=== PATIENT | female | born 1935 | race Two or more races ===

== ENCOUNTER 2022-11-19 16:30 | Inpatient (IN) | payer MEDICARE, OTHER ==
[~2022-11-19] VITALS: Ht 157.5 cm; Wt 65.8 kg
--- NOTE | 2022-11-19 16:45 | NUR ---
BIB CARETAKERS STATING THAT SHE HAS BEEN REFUSING MEDICATION FOR A WEEK AND IS PARANOID, HERE FOR PSYCH EVAL. PLACED IN BED, AAOX3- CALM, COOPERATIVE.
--- NOTE | 2022-11-19 17:24 | NUR ---
SCREEN PRINTING SUPERVISOR AT BEDSIDE
--- NOTE | 2022-11-19 17:28 | NUR ---
SWAB FOR COVID19 SENT TO LAB
[2022-11-19] MEDS ORDERED: FAMO20TA8 PO (17:40)
[2022-11-19] MEDS ORDERED: DICL100G34 TD (17:40)
[2022-11-19] MEDS ORDERED: DORZ1DRO7 EACHEYE (17:40)
[2022-11-19] MEDS ORDERED: METF-440 PO (17:40)
[2022-11-19] MEDS ORDERED: LIDO1ADH82 TP (17:40)
[2022-11-19] MEDS ORDERED: SITA100T PO (17:40)
[2022-11-19] MEDS ORDERED: ROSU5TAB13 PO (17:40)
[2022-11-19] MEDS ORDERED: LOSA50TA39 PO (17:40)
[2022-11-19] MEDS ORDERED: MEMA5TAB42 PO (17:40)
[2022-11-19] MEDS ORDERED: NETA2.5D3 EACHEYE (17:40)
[2022-11-19] MEDS ORDERED: SODI45SP6 (17:40)
[2022-11-19] MEDS ORDERED: ALBU18HF2 IH (17:40)
[2022-11-19] MEDS ORDERED: BACL10TA PO (17:40)
[2022-11-19] MEDS ORDERED: QUET25TA PO (17:40)
[2022-11-19] MEDS ORDERED: BRIM5DRO11 EACHEYE (17:40)
[2022-11-19] MEDS ORDERED: PILO15DR7 EACHEYE (17:40)
[2022-11-19] MEDS ORDERED: HYDR12.55 PO (17:40)
[2022-11-19 17:50] LABS: BASOPHILS % (AUTO) 0.3 % (0.0-2.0); EOSINOPHILS % (AUTO) 0.9 % (0.0-6.0); HEMATOCRIT 38 % (33-45); HEMOGLOBIN 12.5 g/dL (11.5-14.8); LYMPHOCYTES # (AUTO) 1.3 K/uL (0.8-4.8); LYMPHOCYTES % (AUTO) 14.9 % (20.0-44.0); MEAN CORPUSCULAR HGB CONC 33 g/dl (31.0-36.0); MEAN CORPUSCULAR VOLUME 92 fL (82-100); MONOCYTES # (AUTO) 0.6 K/uL (0.1-1.30); MONOCYTES % (AUTO) 6.8 % (2.0-12.0); NEUTROPHILS # (AUTO) 6.6 K/uL (1.8-8.9); NEUTROPHILS % (AUTO) 77.1 % (43.0-81.0); PLATELET COUNT (AUTO) 348 K/uL (150-450); WHITE BLOOD COUNT (AUTO) 8.6 K/uL (4.3-11.0)
[2022-11-19 18:17] LABS: ALANINE AMINOTRANSFERASE 15 U/L (12-78); ALBUMIN 2.9 g/dL (3.4-5.0); ALKALINE PHOSPHATASE 91 U/L (46-116); ASPARTATE AMINOTRANSFERASE 16 U/L (15-37); BILIRUBIN,DIRECT 0.1 mg/dL (0.0-0.2); BILIRUBIN,TOTAL 0.3 mg/dL (0.2-1.0); CALCIUM, SERUM 9.1 mg/dL (8.5-10.1); CHLORIDE 103 mmol/L (98-107); GLUCOSE 276 mg/dL (74-106); SODIUM SERUM 140 mmol/L (136-145); TOTAL PROTEIN, SERUM 7.2 g/dL (6.4-8.2); UREA NITROGEN, BLOOD 20 mg/dL (7-18)
[2022-11-19 18:23] LABS: CARBON DIOXIDE 28 mmol/L (21-32)
[2022-11-19 18:31] LABS: ALCOHOL, BLOOD < 3 mg/dL (0-0)
--- NOTE | 2022-11-19 19:00 | NUR ---
room 211-b
[2022-11-19 19:45] LABS: BILIRUBIN,URINE NEGATIVE (NEGATIVE); COLOR,URINE YELLOW (YELLOW); LEUKOCYTE ESTERASE ,URINE 1+ (NEGATIVE); NITRITE, URINE POSITIVE (NEGATIVE); PROTEIN,URINE TRACE mg/dl (NEGATIVE); UGLUCOSE NEGATIVE (NEGATIVE); UROBILINOGEN,URINE 0.2 EU/dL (0.2)
[2022-11-19 20:43] LABS: BACTERIA,URINE Many /HPF (None Seen); SQUAMOUS EPITHELIAL CELL,UR Moderate /HPF (None Seen)
--- NOTE | 2022-11-19 20:47 | NUR ---
PER LAB , NOT ENOUGH URINE
--- NOTE | 2022-11-19 20:48 | NUR ---
REPORT GIVEN TO BEATRIZ BERNABE ROOM 211-B FOR JUDY
[2022-11-19] MEDS: POTASSIUM CHLORIDE 20 MEQ TAB.PRT.SR PO ONE ×2 (21:30→23:02)
--- NOTE | 2022-11-19 21:50 | NUR ---
RN NOTES; ADMITTED A 87 Y/O FEMALE FROM [facility] AND EVALUATED FROM [facility].ON 5150 HOLD GD,BASED ON HOLD ,PT IS BROUGHT FOR EVALUATION D/T PSYCHOTIC AND PARANOID,NOT TAKING MEDS FOR A WEEK,PT ADMITTING DX,PSYCHOSIS AND MEDICAL DX OF HTN,DM,HLD,UPON FACE TO FACE EVALUATION,PT APPEARED AOX3 WITH CONFUSION,NO SIGN SOB/DISTRESS NOTED,NO COMPLAINED OF PAIN/DISCOMFORT AT THIS TIME,PT IS UNDER THE CARE OF DAGO DE LA FUENTE K.PT REFUSED TO SIGN ADMISSION CONSENT PAPERS,BELONGINGS COLLECTED FOR CONTRABAND CHECK,FAMILY WAS NOTIFIED SPOKE TO DAUGHTER BECCA HODGES.KEPT CLEAN,DRY AND COMFORTABLE,WILL CONTINUE TO MONITOR [id number] FOR SAFETY.
--- NOTE | 2022-11-19 21:52 | NUR ---
PT TRANSPORTED TO UNIT ON WHEELCHAIR. PT IS IN STABLE CONDITION. PT IS AMBULATORY.
[2022-11-19] MEDS ORDERED: MAGNESIUM HYDROXIDE 30 ML UDC PO PRN (22:00)
[2022-11-19] MEDS ORDERED: Medication Not On Formulary EA (Netarsudil Mesylat/Latanoprost (Rocklatan 0.02%-0.005% E EACHEYE SCH (22:00)
[2022-11-19] MEDS: ATORVASTATIN 10 MG TABLET PO SCH ×2 (22:00→23:02)
[2022-11-19] MEDS: LOSARTAN POTASSIUM 50 MG TABLET PO SCH ×2 (22:00→23:02)
--- NOTE | 2022-11-19 23:17 | NUR ---
RN NOTE; PATIENT REFUSED ALL DUE MEDS,K-DUR,COZAAR,LIPITOR.EXPLAINED BENEFITS X3.STILL REFUSED.
--- NOTE | 2022-11-19 23:18 | NUR ---
RN NOTE; PATIENT REFUSED ALL DUE MEDS,K-DUR,COZAAR,LIPITOR.EXPLAINED BENEFITS X3.STILL REFUSED.
[2022-11-19] MEDS: TEMAZEPAM 7.5 MG CAPSULE PO PRN (23:54)
--- NOTE | 2022-11-20 00:28 | NUR ---
RN NOTES; PT REFUSED DUE MEDS KEFLEX.
[2022-11-20] MEDS ORDERED: GUAIFENESIN/D-METHORPHAN HB 5 ML UDC PO PRN (05:00)
[2022-11-20] MEDS: CEPHALEXIN MONOHYDRATE 500 MG CAPSULE PO SCH ×4 (05:57→17:59)
[2022-11-20 07:17] LABS: CREATININE 0.8 mg/dL (0.6-1.3)
[2022-11-20 07:47] LABS: CHOLESTEROL 123 mg/dL (<200); HDL CHOLESTEROL 32 mg/dL (40-60); LDL 74 mg/dL (0-99); TRIGLYCERIDES 141 mg/dL (30-150)
[2022-11-20 08:00] VITALS: BP 124/71
[2022-11-20] MEDS ORDERED: ALBUTEROL FS 2.5 MG/0.5 ML VIAL.NEB NEB PRN (08:00)
[2022-11-20] MEDS ORDERED: [UNRECOGNIZED DRUG - OTHER] EACHEYE SCH (09:00)
[2022-11-20] MEDS ORDERED: Medication Not On Formulary EA (Sitagliptin Phosphate (Januvia) 100 MG) PO SCH (09:00)
[2022-11-20] MEDS: FAMOTIDINE (20 MG) 20 MG TABLET PO SCH ×3 (09:00→17:00)
[2022-11-20] MEDS: BRIMONIDINE TARTRATE OPHT SOLN 5 ML BOTTLE EACHEYE SCH ×3 (09:00→17:00)
[2022-11-20] MEDS: MEMANTINE HCL 5 MG TABLET PO SCH ×2 (09:00→09:58)
[2022-11-20] MEDS ORDERED: DICLOFENAC TOPICAL 100 GM TUBE TP SCH (09:00)
[2022-11-20] MEDS: PILOCARPINE 2% OPTH DROP 15 ML BOTTLE EACHEYE SCH ×2 (09:00→17:00)
[2022-11-20] MEDS ORDERED: DORZOLAMIDE EACHEYE SCH (09:00)
[2022-11-20] MEDS ORDERED: TIMOLOL EACHEYE SCH (09:00)
--- NOTE | 2022-11-20 09:00 | NUR ---
RN- NOTES ISOPTO CARPINE 2% EYE DROPS NOT ADMINISTERED DUE TO MEDICATION NOT IN FORMULARY. WILL CONTACT PATIENT FAMILY TO DROP OFF MEDICATION.
[2022-11-20] MEDS: LIDOCAINE 5% (PATCH) 1 EA PATCH TP SCH (09:41)
[2022-11-20] MEDS: SALINE NASAL SPRAY 0.65% 1 BOTTLE BOTTLE NS SCH ×2 (09:43→17:00)
[2022-11-20] MEDS: BACLOFEN (10 MG) 10 MG TABLET PO SCH ×2 (09:58→17:00)
[2022-11-20] MEDS: LINAGLIPTIN 5 MG TABLET PO SCH (09:58)
[2022-11-20] MEDS: METFORMIN 500 MG TABLET PO SCH ×2 (09:58→17:00)
--- NOTE | 2022-11-20 11:07 | NUR ---
pt refused baclofen at 0900 but on emar software writer was unable to document the change from administered to non administered due to baclofen not showing up in emar again. software writer wasted baclofen via omnicel.
--- NOTE | 2022-11-20 11:19 | NUR ---
principal technical writer attempted to waste baclofen via omnicel but omnicel did not accept waste for unknown reason. principal technical writer wasted baclofen 10mg with French Nelson RN.
[2022-11-20] MEDS: DIVALPROEX SODIUM 125 MG CAP.SPRINK PO SCH ×2 (11:30→17:00)
--- NOTE | 2022-11-20 14:47 | NUR ---
SHEA Clinical Note: Pt placed on a 5150 hold for GD. Pt brought to the hospital due to being aggressive at the facility. [place] [address]. SHEA will contact pt's probate conservator daughter, Stephy ([phone]) to discuss treatment/discharge plan. SHEA will contact pt's caregiver Joyce ([phone]) to gather collateral.
--- NOTE | 2022-11-20 14:47 | NUR ---
SHEA Initial Discharge Note: [place] [address]. SHEA will contact pt's probate conservator daughter, Stephy ([phone]) to discuss treatment/discharge plan. SHEA will contact pt's caregiver Joyce ([phone]) to gather collateral. SHEA will coordinate appropriate discharge with MD, treatment, and pt to help coordinate appropriate discharge.
--- NOTE | 2022-11-20 14:49 | NUR ---
Treatment Plan: Pt refused to sign treatment plan and was labile.
--- NOTE | 2022-11-20 15:02 | NUR ---
Facility Contact: SW attempted to contact pt's facility plastic molder Joyce ([phone]) and stated she would need to be stable. She would have to re-assess the pt before.
--- NOTE | 2022-11-20 15:06 | NUR ---
Family Contact: SW contacted pt's daughter Stephy ([phone]) and she stated to call her back later that she is busy. SW will attempt to contact again.
--- NOTE | 2022-11-20 15:34 | NUR ---
SHEA Family Contact: SW contacted pt's probate conservator Stephy ([phone]) and she said she would want pt back to the [facility]. She stated that she does not want to get constant calls from the staff only emergency contact.
[2022-11-20 16:00] VITALS: BP 100/62
--- NOTE | 2022-11-20 16:24 | NUR ---
RN- NOTES DAUGHTER CALLED TO ASK FOR DORZOLAMID/TIMOLOL AND NETARSUDIL MESYLAT/LATANOPROST EYE DROPS TO BE DELIVERED FOR HOSPITAL USE. DAUGHTER STATED, "I DON'T KNOW WHY SHE IS ON EYE DROPS, THEY DON'T HELP." MD NOTIFIED BY PHARMACY AND DISCONTINUED PER MD ORDERS.
[2022-11-20 20:00] VITALS: BP 103/75
[2022-11-20 20:40] VITALS: BP 103/75
[2022-11-20] MEDS: QUETIAPINE FUMARATE 25 MG TABLET PO SCH (22:00)
[2022-11-20] MEDS: LOSARTAN POTASSIUM 50 MG TABLET PO SCH (22:00)
[2022-11-20] MEDS ORDERED: QUETIAPINE FUMARATE 25 MG TABLET PO SCH (22:00)
[2022-11-20] MEDS: ATORVASTATIN 10 MG TABLET PO SCH (22:00)
--- NOTE | 2022-11-20 22:33 | NUR ---
PATIENT INSISTS SHE WILL NOT TAKE ANY MEDS SINCE SHE WAS NEVER SEEN BY A DOCTOR. GAVE PATIENT EDUCATION REGARDING MEDICATION REGIMEN, RISKS AND BENEFITS, BUT STILL REFUSED.
[2022-11-20] MEDS: LORAZEPAM 0.5 MG TABLET PO PRN (23:38)
--- NOTE | 2022-11-20 23:39 | NUR ---
PATIENT SAID SHE WILL TAKE HER PRN ATIVAN 0.5MG BUT WHEN SHE WAS OFFERED, SHE REFUSED. PATIENT IS VERY NEEDY, AGITATED, NON-DIRECTABLE AND UNABLE TO CONTROL BEHAVIOR. WASTE MED WITH JENNYFER BARTLETT.
--- NOTE | 2022-11-21 00:13 | NUR ---
I TOLD THE PATIENT THAT SHE IS POSITIVE FOR UTI, VERBALIZED SHE DOES NOT WANT TO TAKE IT NOW AND SHE WILL TAKE IT IN THE MORNING. EXPLAINED TO HER THAT SHE NEEDS TO TAKE THE ANTIBIOTIC EVERY 6 HOURS SO IT WILL BE EFFECTIVE. STILL REFUSED AND KEEP SAYING SHE HAS NOT BEEN SEEN BY THE DOCTOR.
[2022-11-21] MEDS: MAG HYDROX/AL HYDROX/SIMETH 30 ML UDC PO PRN (00:22)
--- NOTE | 2022-11-21 00:34 | NUR ---
C/O STOMACH CRAMPS AND COUGHING NOTED. GAVE PRN MAALOX AND ROBITUSSIN. PATIENT TOOK A SIP AND REFUSED THE MEDS DUE TO TASTE. ENCOURAGED TO DRINK WATER RIGHT AFTER.
[2022-11-21] MEDS: CEPHALEXIN MONOHYDRATE 500 MG CAPSULE PO SCH ×5 (06:00→23:16)
--- NOTE | 2022-11-21 06:37 | NUR ---
PATIENT SLEEPING, EASY TO AROUSE. ABLE TO VERBALIZE NEEDS. NEEDY, ATTENTION-SEEKING, GUARDED, SUSPICIOUS, LABILE, NON-DIRECTABLE, PERSEVERATING ON SEEING THE DOCTOR. NO SOB OR NOTED. NO C/O PAIN. NO SI/HI AT THIS TIME. REFUSED ALL SCHEDULED MEDS. FREQUENT RE-ORIENTATION NEEDED. SAFETY PRECAUTIONS IN PLACE. WILL ENDORSE TO NEXT SHIFT FOR CONTINUITY OF CARE.
[2022-11-21 08:00] VITALS: BP 129/71
[2022-11-21] MEDS: MEMANTINE HCL 5 MG TABLET PO SCH (09:00)
[2022-11-21] MEDS: SALINE NASAL SPRAY 0.65% 1 BOTTLE BOTTLE NS SCH ×2 (09:00→17:00)
[2022-11-21] MEDS: BACLOFEN (10 MG) 10 MG TABLET PO SCH ×2 (09:00→17:00)
[2022-11-21] MEDS: METFORMIN 500 MG TABLET PO SCH ×2 (09:00→17:00)
[2022-11-21] MEDS: DIVALPROEX SODIUM 125 MG CAP.SPRINK PO SCH ×2 (09:00→17:00)
[2022-11-21] MEDS: BRIMONIDINE TARTRATE OPHT SOLN 5 ML BOTTLE EACHEYE SCH ×2 (09:00→17:00)
[2022-11-21] MEDS: PILOCARPINE 2% OPTH DROP 15 ML BOTTLE EACHEYE SCH ×2 (09:00→17:00)
[2022-11-21] MEDS: LIDOCAINE 5% (PATCH) 1 EA PATCH TP SCH (09:00)
[2022-11-21] MEDS: LINAGLIPTIN 5 MG TABLET PO SCH (09:54)
[2022-11-21] MEDS: FAMOTIDINE (20 MG) 20 MG TABLET PO SCH ×2 (09:54→17:00)
--- NOTE | 2022-11-21 12:20 | NUR ---
Patient alert, ambulatory with walker, no complain of pain at this time, respiration even and unlabored, refused all 0900 medications, patient stated she is not taking any medication until she speaks to her doctor, charge nurse and MD aware, continue monitoring.
[2022-11-21 16:00] VITALS: BP 109/57
[2022-11-21 20:00] VITALS: BP 123/75
[2022-11-21] MEDS: LOSARTAN POTASSIUM 50 MG TABLET PO SCH (21:22)
[2022-11-21] MEDS: QUETIAPINE FUMARATE 25 MG TABLET PO SCH (21:23)
[2022-11-21] MEDS: ATORVASTATIN 10 MG TABLET PO SCH (21:23)
[2022-11-21] MEDS: TEMAZEPAM 7.5 MG CAPSULE PO PRN (23:03)
--- NOTE | 2022-11-22 03:31 | NUR ---
Took all PO medications without difficulty. ABT keflex in progress Temp 98.6. temazepam given for imsomia with some effect.
[2022-11-22] MEDS: CEPHALEXIN MONOHYDRATE 500 MG CAPSULE PO SCH ×5 (06:00→23:21)
--- NOTE | 2022-11-22 06:52 | NUR ---
Patient refused 6:00 o'clock antibiotic dose. States " I will take it later."
[2022-11-22 08:00] VITALS: BP 115/69
[2022-11-22] MEDS: LIDOCAINE 5% (PATCH) 1 EA PATCH TP SCH ×2 (08:58→09:00)
[2022-11-22] MEDS: MEMANTINE HCL 5 MG TABLET PO SCH (08:58)
[2022-11-22] MEDS: METFORMIN 500 MG TABLET PO SCH ×4 (08:58→17:35)
[2022-11-22] MEDS: BACLOFEN (10 MG) 10 MG TABLET PO SCH ×4 (08:58→17:35)
[2022-11-22] MEDS: DIVALPROEX SODIUM 125 MG CAP.SPRINK PO SCH ×5 (08:58→17:35)
[2022-11-22] MEDS: FAMOTIDINE (20 MG) 20 MG TABLET PO SCH ×4 (08:58→17:35)
[2022-11-22] MEDS: LINAGLIPTIN 5 MG TABLET PO SCH ×2 (08:58→09:00)
[2022-11-22] MEDS: SALINE NASAL SPRAY 0.65% 1 BOTTLE BOTTLE NS SCH ×2 (09:00→17:00)
[2022-11-22] MEDS: PILOCARPINE 2% OPTH DROP 15 ML BOTTLE EACHEYE SCH ×2 (09:00→17:00)
[2022-11-22] MEDS: BRIMONIDINE TARTRATE OPHT SOLN 5 ML BOTTLE EACHEYE SCH ×2 (09:00→17:00)
[2022-11-22] MEDS: ACETAMINOPHEN 325 MG TABLET PO PRN (12:47)
[2022-11-22 16:00] VITALS: BP 98/56
--- NOTE | 2022-11-22 19:20 | NUR ---
RN notes Pt is sitting in a wheelchair comfortably talking with her room mate. Pt is alert and orientedX2, calm, compliant with care, needy and guarded. On room air. No SOB. No S/s of distress noted. Vs is stable. Reality orientation provided. safety precautions is maintained. Will continue to monitor Q 15 mins checks for safety and behavior.
[2022-11-22 20:00] VITALS: BP 105/71
[2022-11-22] MEDS: ATORVASTATIN 10 MG TABLET PO SCH (21:13)
[2022-11-22] MEDS: QUETIAPINE FUMARATE 25 MG TABLET PO SCH (21:13)
[2022-11-22] MEDS: LOSARTAN POTASSIUM 50 MG TABLET PO SCH (21:13)
--- NOTE | 2022-11-22 21:18 | NUR ---
RN notes Pt dropped one tab of lipitor on the floor. Took 1 tab lipitor from pyxis. Charge nurse is aware and informed.
--- NOTE | 2022-11-22 23:21 | NUR ---
RN notes Pt refuses keflex med. explained risks and benefits. Pt keep refusing. Returned med to [facility].
[2022-11-23] MEDS: CEPHALEXIN MONOHYDRATE 500 MG CAPSULE PO SCH ×4 (06:00→17:05)
--- NOTE | 2022-11-23 06:43 | NUR ---
RN notes Pt refuses am abx. explained risks and benefits. Pt keep refusing.
[2022-11-23 08:00] VITALS: BP 123/71
[2022-11-23] MEDS: SALINE NASAL SPRAY 0.65% 1 BOTTLE BOTTLE NS SCH ×2 (09:00→17:00)
[2022-11-23] MEDS: LIDOCAINE 5% (PATCH) 1 EA PATCH TP SCH (09:00)
[2022-11-23] MEDS: FAMOTIDINE (20 MG) 20 MG TABLET PO SCH ×3 (09:00→16:51)
[2022-11-23] MEDS: PILOCARPINE 2% OPTH DROP 15 ML BOTTLE EACHEYE SCH ×2 (09:00→17:00)
[2022-11-23] MEDS: BACLOFEN (10 MG) 10 MG TABLET PO SCH ×3 (09:00→16:51)
[2022-11-23] MEDS: MEMANTINE HCL 5 MG TABLET PO SCH ×2 (09:00→09:53)
[2022-11-23] MEDS: BRIMONIDINE TARTRATE OPHT SOLN 5 ML BOTTLE EACHEYE SCH ×2 (09:00→17:00)
[2022-11-23] MEDS: DIVALPROEX SODIUM 125 MG CAP.SPRINK PO SCH ×6 (09:52→17:00)
[2022-11-23] MEDS: METFORMIN 500 MG TABLET PO SCH ×2 (09:52→16:51)
[2022-11-23] MEDS: LINAGLIPTIN 5 MG TABLET PO SCH (09:53)
--- NOTE | 2022-11-23 10:00 | NUR ---
RN-NOTES PATIENT IS SELECTIVE WITH MEDICATIONS, DESPITE EXPLANATIONS THE RISK AND BENEFITS OF THE MEDICATIONS . PATIENT GETS ARGUMENTATIVE AND IRRITABLE. CHARGE NURSE DID ALSO TRIED TO ENCOURAGED PATIENT.OFFERED X3
[2022-11-23 16:00] VITALS: BP 114/66
[2022-11-23] MEDS: ACETAMINOPHEN 325 MG TABLET PO PRN (18:16)
--- NOTE | 2022-11-23 18:16 | NUR ---
RN-NOTES PATIENT REQUESTING TYLENOL FOR HER HEADACHE. TYLENOL 650MG P.O GIVEN PRN ORDER.
--- NOTE | 2022-11-23 18:28 | NUR ---
RN-NOTES PATIENT VISIBLE IN THE UNIT ,A/OX2 GUARDED,NO ACUTE DISTRESS NOTED. SELECTIVE WITH MEDICATIONS.PATIENT ON WHEELCHAIR,ABLE TO TRANSFER SELF FROM WHEELCHAIR TO BED AND VISE VERSA WITHOUT HELP AND ABLE TO WHEEL SELF AROUND THE UNIT.NOTED PATIENT WITH EASILY ANGRY,IRRITABLE ,NEEDY ARGUMENTATIVE BEHAVIOR. ALL NEEDS ATTENDED AND ANTICIPATED.WILL CONT. MONITORING FOR SAFETY NAD BEHAVIOR.WILL ENDORSE TO INCOMING NURSE FOR THE CONTINUITY OF CARE.
--- NOTE | 2022-11-23 19:05 | NUR ---
RN notes Pt is sitting in a wheelchair comfortably. Pt is alert and orientedX2, calm, compliant with care, needy and guarded. On room air. No SOB. No S/s of distress noted. Vs is stable. Reality orientation provided. Snacks is provided. safety precautions is maintained. Will continue to monitor Q 15 mins checks for safety and behavior.
[2022-11-23 20:00] VITALS: BP 112/62
[2022-11-23] MEDS: ATORVASTATIN 10 MG TABLET PO SCH (21:37)
[2022-11-23] MEDS: QUETIAPINE FUMARATE 25 MG TABLET PO SCH (21:38)
[2022-11-23] MEDS: LOSARTAN POTASSIUM 50 MG TABLET PO SCH (21:46)
[2022-11-24] MEDS: CEPHALEXIN MONOHYDRATE 500 MG CAPSULE PO SCH ×4 (06:00→17:37)
--- NOTE | 2022-11-24 06:10 | NUR ---
RN notes Pt keep refusing keflex abx since last night. explained risks and benefits. Will continue to monitor.
--- NOTE | 2022-11-24 07:30 | NUR ---
PT RECEIVED RESTING COMFORTABLY IN BED. NO S/S OR C/O PAIN OR DISTRESS NOTED. SIDE RAILS UP X2. WILL CONTINUE PLAN OF CARE
[2022-11-24 08:00] VITALS: BP 106/77
[2022-11-24] MEDS: MEMANTINE HCL 5 MG TABLET PO SCH (09:00)
[2022-11-24] MEDS: LINAGLIPTIN 5 MG TABLET PO SCH (09:00)
[2022-11-24] MEDS: LIDOCAINE 5% (PATCH) 1 EA PATCH TP SCH (09:00)
[2022-11-24] MEDS: SALINE NASAL SPRAY 0.65% 1 BOTTLE BOTTLE NS SCH ×2 (09:00→17:00)
[2022-11-24] MEDS: METFORMIN 500 MG TABLET PO SCH ×2 (09:00→17:00)
[2022-11-24] MEDS: FAMOTIDINE (20 MG) 20 MG TABLET PO SCH ×2 (09:00→17:00)
[2022-11-24] MEDS: BACLOFEN (10 MG) 10 MG TABLET PO SCH ×2 (09:00→17:00)
[2022-11-24] MEDS: PILOCARPINE 2% OPTH DROP 15 ML BOTTLE EACHEYE SCH ×2 (09:00→17:00)
[2022-11-24] MEDS: DIVALPROEX SODIUM 125 MG CAP.SPRINK PO SCH ×3 (09:00→17:00)
[2022-11-24] MEDS: BRIMONIDINE TARTRATE OPHT SOLN 5 ML BOTTLE EACHEYE SCH ×2 (09:00→17:00)
[2022-11-24 16:00] VITALS: BP 108/60
[2022-11-24 20:26] VITALS: BP 119/59
[2022-11-24] MEDS: LOSARTAN POTASSIUM 50 MG TABLET PO SCH (21:45)
[2022-11-24] MEDS: ATORVASTATIN 10 MG TABLET PO SCH (21:45)
[2022-11-24] MEDS: QUETIAPINE FUMARATE 25 MG TABLET PO SCH (22:02)
[2022-11-25] MEDS: CEPHALEXIN MONOHYDRATE 500 MG CAPSULE PO SCH ×5 (05:07→18:00)
[2022-11-25 08:00] VITALS: BP 105/59
[2022-11-25] MEDS: BRIMONIDINE TARTRATE OPHT SOLN 5 ML BOTTLE EACHEYE SCH ×3 (09:00→17:00)
[2022-11-25] MEDS: SALINE NASAL SPRAY 0.65% 1 BOTTLE BOTTLE NS SCH ×3 (09:00→17:00)
[2022-11-25] MEDS: MEMANTINE HCL 5 MG TABLET PO SCH ×2 (09:00→09:53)
[2022-11-25] MEDS: DIVALPROEX SODIUM 125 MG CAP.SPRINK PO SCH ×2 (09:00→09:53)
[2022-11-25] MEDS: BACLOFEN (10 MG) 10 MG TABLET PO SCH ×3 (09:00→17:00)
[2022-11-25] MEDS: PILOCARPINE 2% OPTH DROP 15 ML BOTTLE EACHEYE SCH ×3 (09:00→17:00)
[2022-11-25] MEDS: FAMOTIDINE (20 MG) 20 MG TABLET PO SCH ×3 (09:00→17:00)
[2022-11-25] MEDS: LIDOCAINE 5% (PATCH) 1 EA PATCH TP SCH (09:52)
[2022-11-25] MEDS: METFORMIN 500 MG TABLET PO SCH ×2 (09:53→17:00)
[2022-11-25] MEDS: LINAGLIPTIN 5 MG TABLET PO SCH (09:53)
--- NOTE | 2022-11-25 10:13 | NUR ---
RN NOTE PT REFUSED ALL HER MEDICATIONS SCHEDULED AT 0900 EXCEPT METFORMIN, TRAJENDA, AND LIDOCAINE PATCH MEDICATIONS. EXPLAINED RISK AND BENEFITSX3, PT STILL REFUSED. PT STATED, "I'VE NEVER TAKEN THOSE MEDICATIONS".
--- NOTE | 2022-11-25 11:55 | NUR ---
RN NOTE PT REFUSED HER KEFLEX ANTIBIOTIC MEDICATION SCHEDULED AT 1200. EXPLAINED RISK AND BENEFITS. PT STILL REFUSED.
--- NOTE | 2022-11-25 12:05 | NUR ---
Court Hearing: Patient's court hearing for [id number] was today and it was upheld for GD.
--- NOTE | 2022-11-25 12:05 | NUR ---
Court Notification: SW contacted pt's daughter probate conservator Stephy ([phone]) and left a voicemail of 0622 hearing.
[2022-11-25 16:00] VITALS: BP 107/53
--- NOTE | 2022-11-25 17:10 | NUR ---
RN NOTE PT REFUSED ALL HER MEDICATIONS SCHEDULED AT 1700. EXPLAINED RISK AND BENEFITSX3, PT STILL REFUSED. PT STATED, "MEJA, I DON'T TAKE THOSE TYPE OF MEDICATIONS".
--- NOTE | 2022-11-25 18:03 | NUR ---
RN NOTE PT REFUSED HER KEFLEX ANTIBIOTIC MEDICATION SCHEDULED AT 1800. PT AGREED AT TO TAKE THE KEFLEX ANTIBIOTIC AT FIRST BUT WHEN HANDED HER THE MEDICATION, SHE CHANGED HER MIND AND REFUSED. EXPLAINED RISK AND BENEFITSX3. PT STILL REFUSED.
--- NOTE | 2022-11-25 18:04 | NUR ---
RN NOTE PT'S KEFLEX MEDICATION FELL ON THE FLOOR AFTER PT REFUSED TO TAKE THE KEFLEX MEDICATION. PT THEN REQUESTED TO REPLACE IT AND SHE WILL TAKE IT THEN. ANOTHER DOSE OF KEFLEX MEDICATIONS REMOVED FROM THE OMNICEL. REMOVED THE NEW KEFLEX MEDICATION FROM THE BUBBLE PACK IN FRONT OF THE PT AND ATTEMPTED TO GIVE TO HER. PT REFUSED AGAIN AND CLAIMED THAT NURSE DID NOT REPLACE THE MEDICATION. EXPLAINED RISK AND BENEFITS AGAIN. PT STILL REFUSED.
[2022-11-25 19:54] VITALS: BP 124/65
[2022-11-25] MEDS: ATORVASTATIN 10 MG TABLET PO SCH (21:15)
[2022-11-25] MEDS: QUETIAPINE FUMARATE 25 MG TABLET PO SCH (21:16)
[2022-11-25] MEDS: LOSARTAN POTASSIUM 50 MG TABLET PO SCH (21:23)
--- NOTE | 2022-11-25 21:23 | NUR ---
RN NOTE PATIENT REFUSED HER COZAAR MEDICATION SCHEDULED AT 2100. EXPLAINED RISK AND BENEFITS X3, PATIENT STILL REFUSED. PATIENT STATED, "MEJA, NO, I DON'T WANT IT". CHARGE NURSE AWARE.
[2022-11-25] MEDS: MAG HYDROX/AL HYDROX/SIMETH 30 ML UDC PO PRN (22:33)
[2022-11-26] MEDS: CEPHALEXIN MONOHYDRATE 500 MG CAPSULE PO SCH ×4 (00:05→17:15)
[2022-11-26 08:00] VITALS: BP 115/67
[2022-11-26] MEDS: PILOCARPINE 2% OPTH DROP 15 ML BOTTLE EACHEYE SCH ×2 (09:00→16:26)
[2022-11-26] MEDS: BRIMONIDINE TARTRATE OPHT SOLN 5 ML BOTTLE EACHEYE SCH ×2 (09:00→16:26)
[2022-11-26] MEDS: SALINE NASAL SPRAY 0.65% 1 BOTTLE BOTTLE NS SCH ×2 (09:00→16:26)
[2022-11-26] MEDS: LIDOCAINE 5% (PATCH) 1 EA PATCH TP SCH (09:00)
[2022-11-26] MEDS: MEMANTINE HCL 5 MG TABLET PO SCH (09:26)
[2022-11-26] MEDS: LINAGLIPTIN 5 MG TABLET PO SCH (09:26)
[2022-11-26] MEDS: METFORMIN 500 MG TABLET PO SCH ×3 (09:26→16:32)
[2022-11-26] MEDS: BACLOFEN (10 MG) 10 MG TABLET PO SCH ×3 (09:26→16:32)
[2022-11-26] MEDS: FAMOTIDINE (20 MG) 20 MG TABLET PO SCH ×3 (09:26→16:32)
--- NOTE | 2022-11-26 14:06 | NUR ---
SHEA Note: Patient is consistently requesting the phone and wants to call random numbers. Pt has been calling the business office multiple times. Pt not understanding who she is calling. SW notified pt's assigned nurse and SRINIVASA Braswell contacted Dr. Leonardo.
[2022-11-26] MEDS: MAG HYDROX/AL HYDROX/SIMETH 30 ML UDC PO PRN (16:24)
--- NOTE | 2022-11-26 16:25 | NUR ---
RN- NOTES MAALOX GIVEN DUE TO PATIENT COMPLAINTS OF INDIGESTION.
[2022-11-26 16:41] VITALS: BP 101/65
[2022-11-26 20:13] VITALS: BP 109/50
[2022-11-26] MEDS: ATORVASTATIN 10 MG TABLET PO SCH (21:38)
[2022-11-26] MEDS: QUETIAPINE FUMARATE 25 MG TABLET PO SCH (21:39)
[2022-11-26] MEDS: LOSARTAN POTASSIUM 50 MG TABLET PO SCH (21:40)
--- NOTE | 2022-11-26 21:40 | NUR ---
RN NOTE PT REFUSED COZAAR MEDICATION DUE AT 2200. PT STATED "I DON'T HAVE HIGH BLOOD PRESSURE". MEDICATION IS RETURNED TO THE [facility].
[2022-11-27] MEDS: CEPHALEXIN MONOHYDRATE 500 MG CAPSULE PO SCH ×7 (00:21→23:36)
--- NOTE | 2022-11-27 00:34 | NUR ---
RN NOTE PT REFUSED ANTIBIOTIC MEDICATION KEFLEX DUE AT 0000. PT STATED "NO! LET ME SLEEP". EDUCATED THE IMPORTANCE OF TAKING ANTIBIOTIC MEDICATIONS FOLLOWING THE SCHEDULE; PT STILL REFUSED.
--- NOTE | 2022-11-27 06:20 | NUR ---
RN NOTE PT REFUSED ANTIBIOTIC MEDICATION KEFLEX DUE AT 0600. PT STATED "NO! DON'T DO THAT". EDUCATED THE IMPORTANCE OF TAKING ANTIBIOTIC MEDICATIONS FOLLOWING THE SCHEDULE; PT STILL REFUSED. MEDICATION IS WASTED.
[2022-11-27 08:00] VITALS: BP 110/66
[2022-11-27] MEDS: BACLOFEN (10 MG) 10 MG TABLET PO SCH ×3 (08:59→17:00)
[2022-11-27] MEDS: METFORMIN 500 MG TABLET PO SCH ×3 (08:59→17:00)
[2022-11-27] MEDS: FAMOTIDINE (20 MG) 20 MG TABLET PO SCH ×3 (08:59→17:00)
[2022-11-27] MEDS: MEMANTINE HCL 5 MG TABLET PO SCH ×2 (08:59→21:40)
[2022-11-27] MEDS: LINAGLIPTIN 5 MG TABLET PO SCH (08:59)
[2022-11-27] MEDS: BRIMONIDINE TARTRATE OPHT SOLN 5 ML BOTTLE EACHEYE SCH ×2 (09:00→17:00)
[2022-11-27] MEDS: PILOCARPINE 2% OPTH DROP 15 ML BOTTLE EACHEYE SCH ×3 (09:00→17:00)
[2022-11-27] MEDS: SALINE NASAL SPRAY 0.65% 1 BOTTLE BOTTLE NS SCH ×2 (09:00→17:00)
[2022-11-27] MEDS: LIDOCAINE 5% (PATCH) 1 EA PATCH TP SCH (09:01)
[2022-11-27] MEDS: LORAZEPAM 0.5 MG TABLET PO PRN (10:35)
[2022-11-27] MEDS: ACETAMINOPHEN 325 MG TABLET PO PRN ×2 (10:35→22:47)
--- NOTE | 2022-11-27 10:35 | NUR ---
Pt c/o anxiety medicated with ativan 0.5mg and c/o pain in back 10 medicated with Tylenol 650mg ,will continue to monitor. .
[2022-11-27 16:00] VITALS: BP 112/55
[2022-11-27] MEDS ORDERED: ALBUTEROL FS 2.5 MG/3 ML VIAL.NEB IH PRN ×2 (16:30)
[2022-11-27 20:00] VITALS: BP 104/55
--- NOTE | 2022-11-27 20:00 | NUR ---
RN OPENING NOTES: RECEIVED PATIENT AWAKE IN WHEEL CHAIR, NO COMPLAIN OF PAIN AND DISCOMFORT, AT THIS TIME, ON ROOM AIR SATURATING, WELL, PATIENT ON ROOM AIR NO SOB WAS OBSERVED, SATURATING WELL, NO BEHAVIORAL CHANGES WAS OBSERVED, WILL CONTINUE TO MONITOR.
[2022-11-27 20:13] VITALS: BP 104/55
[2022-11-27] MEDS: ATORVASTATIN 10 MG TABLET PO SCH (21:59)
[2022-11-27] MEDS: QUETIAPINE FUMARATE 25 MG TABLET PO SCH (21:59)
[2022-11-27] MEDS: LOSARTAN POTASSIUM 50 MG TABLET PO SCH (22:00)
--- NOTE | 2022-11-27 23:36 | NUR ---
RN NOTES: PATIENT REFUSED Q6H ANTIBIOTIC KEPLEX 500MG, EXPLAIN RISK AND BENEFITS, EXPLAIN THAT THESE MEDICATION USE TO TREAT HER UTI, PER PATIENT " I ALREADY HAVE TOO MUCH MEDICATION IN MY STOMACH AND I DONT WANT TO GET IT UPSET, WILL CONTINUE TO MONITOR
[2022-11-28] MEDS: CEPHALEXIN MONOHYDRATE 500 MG CAPSULE PO SCH ×5 (06:00→23:26)
--- NOTE | 2022-11-28 07:00 | NUR ---
RN NOTES: PATIENT REFUSED ABX CEPHALEXIN 500MG Q6H OFFERED 2X EXPLAIN RISK AND BENFITS BUT PATIENT STILL REFUSED, WILL CONTINUE TO MONITOR. Addendum: 11/28/22 at 3723 by CHANNING PAPPAS RN INFORMED GAB COUCH ABOUT PATIENT NONE COMPLIANCE OF NOT TAKING ANTIBIOTIC- WILL CONTINUE TO MONITOR.
[2022-11-28 08:00] VITALS: BP 111/63
[2022-11-28] MEDS: FAMOTIDINE (20 MG) 20 MG TABLET PO SCH ×2 (08:58→17:00)
[2022-11-28] MEDS: BRIMONIDINE TARTRATE OPHT SOLN 5 ML BOTTLE EACHEYE SCH ×2 (08:58→17:00)
[2022-11-28] MEDS: PILOCARPINE 2% OPTH DROP 15 ML BOTTLE EACHEYE SCH ×2 (08:58→17:00)
[2022-11-28] MEDS: MEMANTINE HCL 5 MG TABLET PO SCH ×2 (08:58→21:53)
[2022-11-28] MEDS: LINAGLIPTIN 5 MG TABLET PO SCH (08:58)
[2022-11-28] MEDS: BACLOFEN (10 MG) 10 MG TABLET PO SCH ×2 (08:58→17:00)
[2022-11-28] MEDS: SALINE NASAL SPRAY 0.65% 1 BOTTLE BOTTLE NS SCH ×2 (08:58→17:00)
[2022-11-28] MEDS: METFORMIN 500 MG TABLET PO SCH ×2 (08:58→17:00)
[2022-11-28] MEDS: LIDOCAINE 5% (PATCH) 1 EA PATCH TP SCH (08:59)
[2022-11-28 16:00] VITALS: BP 114/64
--- NOTE | 2022-11-28 18:44 | NUR ---
RN- NOTES PATIENT IS VISIBLE ON THE UNIT, AMBULATING WITH A WHEELCHAIR, BREATHING EVEN AND NON LABORED WITH NO S/S OF DISTRESS. PATIENT IS SUSPICIOUS, NEEDY, MANIPULATIVE, DISORIENTED, ANXIOUS, AND ATTENTION SEEKING. PATIENT IS SELECTIVELY MEDICATION COMPLIANT. FOLLOW UP U/A ORDERED. DENIES SI/HI AT THIS TIME. WILL CONTINUE TO MONITOR Q 15 MINUTES FOR SAFETY AND BEHAVIOR.
--- NOTE | 2022-11-28 20:20 | NUR ---
RECOVERY ROOM NURSE NOTES: URINE SPECIMEN COLLECTED FOR U/A.
[2022-11-28 20:27] VITALS: BP 112/61
[2022-11-28 21:35] LABS: BILIRUBIN,URINE NEGATIVE (NEGATIVE); COLOR,URINE YELLOW (YELLOW); LEUKOCYTE ESTERASE ,URINE TRACE (NEGATIVE); NITRITE, URINE NEGATIVE (NEGATIVE); PROTEIN,URINE NEGATIVE (NEGATIVE); UGLUCOSE NEGATIVE (NEGATIVE); UROBILINOGEN,URINE 0.2 EU/dL (0.2)
[2022-11-28 21:54] LABS: BACTERIA,URINE 1+ /HPF (None Seen); SQUAMOUS EPITHELIAL CELL,UR Few /HPF (None Seen); WBC,URINE 81-100 /HPF (0-3)
[2022-11-28] MEDS: LOSARTAN POTASSIUM 50 MG TABLET PO SCH (21:54)
[2022-11-28] MEDS: ATORVASTATIN 10 MG TABLET PO SCH (21:55)
[2022-11-28] MEDS: QUETIAPINE FUMARATE 25 MG TABLET PO SCH (21:55)
--- NOTE | 2022-11-28 23:45 | NUR ---
MOLDER HELPER NOTES: PATIENT REFUSED KEFLEX 500 MG ORDERED. EXPLAINED THE BENEFITS. PATIENT SAYS SHE WILL TAKE THE NEXT ONE.
--- NOTE | 2022-11-29 05:55 | NUR ---
DRAWING SUPERVISOR NOTES: PATIENT IN HER ROOM SLEEPING. EASILY AROUSABLE. CALM. BREATHING EVEN AND UNLABORED. NO ACUTE DISTRESS NOTED. NO C/O PAIN AT THIS TIME. ALL NEEDS ANTICIPATED AND ATTENDED. WILL ENDORSE TO ONCOMING SHIFT FOR CONTINUITY OF CARE.
[2022-11-29] MEDS: CEPHALEXIN MONOHYDRATE 500 MG CAPSULE PO SCH (06:19)
[2022-11-29 08:00] VITALS: BP 107/58
[2022-11-29] MEDS: LINAGLIPTIN 5 MG TABLET PO SCH ×2 (08:26→09:00)
[2022-11-29] MEDS: METFORMIN 500 MG TABLET PO SCH ×2 (08:26→16:48)
[2022-11-29] MEDS: FAMOTIDINE (20 MG) 20 MG TABLET PO SCH ×3 (08:26→16:48)
[2022-11-29] MEDS: BACLOFEN (10 MG) 10 MG TABLET PO SCH ×2 (08:26→16:48)
[2022-11-29] MEDS: MEMANTINE HCL 5 MG TABLET PO SCH ×2 (08:27→20:26)
[2022-11-29] MEDS: LIDOCAINE 5% (PATCH) 1 EA PATCH TP SCH (08:27)
[2022-11-29] MEDS: SALINE NASAL SPRAY 0.65% 1 BOTTLE BOTTLE NS SCH ×2 (08:29→17:00)
[2022-11-29] MEDS: BRIMONIDINE TARTRATE OPHT SOLN 5 ML BOTTLE EACHEYE SCH ×2 (08:29→17:00)
[2022-11-29] MEDS: PILOCARPINE 2% OPTH DROP 15 ML BOTTLE EACHEYE SCH ×2 (08:29→17:00)
--- NOTE | 2022-11-29 10:49 | NUR ---
NURSE NOTE: CEFTRIAXONE ORDERED AND SCHEDULED FOR 1000. CALLED PHARMACY AT THIS TIME FOR MED D/T IT NOT BEING IN CASSETTE. PHARMACIST SAID THAT IT WOULD BE BROUGHT UP TO FLOOR SOON.
--- NOTE | 2022-11-29 10:54 | NUR ---
SHEA Family Contact: SHEA contacted pt's probate conservator Stephy ([phone]) and notified that Saturday 12/02, her facility will assess her. SW notified that pt does not want to go back to her facility. Daughter stated she needs to go back to the facility and accusing this press writer and the staff for not convincing the patient to go back to her facility. She began to yell at this press writer. SW stated that she is the probate conservator and would need to step in and help with this process. Daughter is fixated on the length of the stay at the hospital. SHEA explained that pt is compliant with medications and has been calm on the unit.
--- NOTE | 2022-11-29 11:12 | NUR ---
SHEA Note: SW had multiple conversations with pt and stating that daughter is probate conservator and would want her to return back to her facility. She appears to be forgetful. SW wrote on a piece of paper to remind her that her daughter is the probate conservator and that her facility will assess her on Saturday 12/02 before she returns back to her facility. SW reminded pt that she has already had this conversation with her daughter multiple times. Pt continues to be fixated on her facility but appears to have a better understanding when this comic book writer wrote on a piece of paper.
[2022-11-29] MEDS: CEFTRIAXONE 1 G VIAL IM SCH (11:45)
[2022-11-29] MEDS: MAG HYDROX/AL HYDROX/SIMETH 30 ML UDC PO PRN (13:10)
[2022-11-29 16:00] VITALS: BP 134/73
--- NOTE | 2022-11-29 19:43 | NUR ---
RN NOTES:RECEIVED PATIENT SITTING UP IN HER BED , A/OX2,3. NO S/SX OF ACUTE DISTRESS NOTED. PATIENT IS EASILY AGITATED ,SUSPICIOUS, PARANOID , GUARDED, NEEDY ,NEEDS FREQUENTLY REDIRECTIONS, ENCOURAGED TO VERBALIZED ANY FEELING OR CONCERN ,SAFETY PRECAUTIONS MAINTAINED. WILL CONTINUE TO MONITOR Q15MIN ROUNDS FOR SAFETY.
[2022-11-29 20:00] VITALS: BP 112/70
[2022-11-29] MEDS: LOSARTAN POTASSIUM 50 MG TABLET PO SCH (21:38)
[2022-11-29] MEDS: ATORVASTATIN 10 MG TABLET PO SCH (21:39)
[2022-11-29] MEDS: QUETIAPINE FUMARATE 25 MG TABLET PO SCH (21:39)
[2022-11-30 08:00] VITALS: BP 98/63
[2022-11-30] MEDS: LIDOCAINE 5% (PATCH) 1 EA PATCH TP SCH (09:00)
[2022-11-30] MEDS: SALINE NASAL SPRAY 0.65% 1 BOTTLE BOTTLE NS SCH ×2 (09:40→17:42)
[2022-11-30] MEDS: PILOCARPINE 2% OPTH DROP 15 ML BOTTLE EACHEYE SCH ×2 (09:41→17:42)
[2022-11-30] MEDS: BRIMONIDINE TARTRATE OPHT SOLN 5 ML BOTTLE EACHEYE SCH ×2 (09:41→17:42)
[2022-11-30 12:00] VITALS: BP 124/70
[2022-11-30] MEDS: METFORMIN 500 MG TABLET PO SCH ×2 (12:16→17:43)
[2022-11-30] MEDS: BACLOFEN (10 MG) 10 MG TABLET PO SCH ×2 (12:18→17:43)
[2022-11-30] MEDS: LINAGLIPTIN 5 MG TABLET PO SCH (12:18)
[2022-11-30] MEDS: FAMOTIDINE (20 MG) 20 MG TABLET PO SCH ×2 (12:18→17:43)
[2022-11-30] MEDS: MEMANTINE HCL 5 MG TABLET PO SCH ×2 (12:19→21:09)
--- NOTE | 2022-11-30 13:00 | NUR ---
GPS/RN PHARMACY CALLED FOR ROCEPHIN IT IS NOT IN [place].
--- NOTE | 2022-11-30 14:53 | NUR ---
GPS/RN PT STILL REFUSING ROCEPHIN IM. WILL TRY AGAIN.
[2022-11-30] MEDS: CEFTRIAXONE 1 G VIAL IM SCH (15:18)
--- NOTE | 2022-11-30 16:14 | NUR ---
At first pt. refused IM med of Rocephin for UTI and wanted to take po med. After talking with pt. and explaining the importance of the IM med, she agreed. IM med given and pt. was not resistive for the shot, staffs supported her during the injection.
--- NOTE | 2022-11-30 19:44 | NUR ---
RN NOTES:RECEIVED PATIENT SITTING UP IN WHEEL CHAIR AND WATCHING TV IN ACTIVITY ROOM , A/OX2. NO S/SX OF ACUTE DISTRESS NOTED. PATIENT IS IRRITABLE LABILE EASILY AGITATED ,SUSPICIOUS, PARANOID , GUARDED, NEEDY , PT. MED COMPLIANT ,NEEDS FREQUENTLY REDIRECTIONS, ENCOURAGED TO VERBALIZED ANY FEELING OR CONCERN ,SAFETY PRECAUTIONS MAINTAINED. WILL CONTINUE TO MONITOR Q15MIN ROUNDS FOR SAFETY.
[2022-11-30 20:55] VITALS: BP 124/69
[2022-11-30] MEDS: LOSARTAN POTASSIUM 50 MG TABLET PO SCH (21:37)
[2022-11-30] MEDS: QUETIAPINE FUMARATE 25 MG TABLET PO SCH (21:38)
[2022-11-30] MEDS: ATORVASTATIN 10 MG TABLET PO SCH (21:38)
[2022-12-01 08:00] VITALS: BP 131/76
[2022-12-01] MEDS: LIDOCAINE 5% (PATCH) 1 EA PATCH TP SCH (09:00)
[2022-12-01] MEDS: LINAGLIPTIN 5 MG TABLET PO SCH (09:00)
[2022-12-01] MEDS: SALINE NASAL SPRAY 0.65% 1 BOTTLE BOTTLE NS SCH ×2 (09:00→17:00)
[2022-12-01] MEDS: PILOCARPINE 2% OPTH DROP 15 ML BOTTLE EACHEYE SCH ×2 (09:00→17:00)
[2022-12-01] MEDS: BRIMONIDINE TARTRATE OPHT SOLN 5 ML BOTTLE EACHEYE SCH ×2 (09:00→17:00)
[2022-12-01] MEDS: BACLOFEN (10 MG) 10 MG TABLET PO SCH ×2 (09:00→17:00)
[2022-12-01] MEDS: MEMANTINE HCL 5 MG TABLET PO SCH ×2 (09:00→21:36)
[2022-12-01] MEDS: FAMOTIDINE (20 MG) 20 MG TABLET PO SCH ×2 (09:00→17:00)
[2022-12-01] MEDS: METFORMIN 500 MG TABLET PO SCH ×2 (09:00→17:00)
--- NOTE | 2022-12-01 10:05 | NUR ---
GPS/RN PT REFUSED AM PO MEDS OFFERED X3
[2022-12-01] MEDS: CEFTRIAXONE 1 G VIAL IM SCH (11:02)
[2022-12-01 16:00] VITALS: BP 108/69
--- NOTE | 2022-12-01 17:26 | NUR ---
GPS/RN PT REFUSED 1700 MEDS OFFERED BY MODELING TEACHER OF THE NOTE AND JONATHAN KLEIN WELL. PT IS VERY ARGUMENTATIVE AND TALKS IN CIRCLES
[2022-12-01 20:28] VITALS: BP 125/62
[2022-12-01] MEDS: ATORVASTATIN 10 MG TABLET PO SCH (21:36)
[2022-12-01] MEDS: QUETIAPINE FUMARATE 25 MG TABLET PO SCH (21:36)
[2022-12-01] MEDS: LOSARTAN POTASSIUM 50 MG TABLET PO SCH (21:37)
[2022-12-02 08:00] VITALS: BP 114/78
[2022-12-02] MEDS: SALINE NASAL SPRAY 0.65% 1 BOTTLE BOTTLE NS SCH ×2 (09:00→17:00)
[2022-12-02] MEDS: PILOCARPINE 2% OPTH DROP 15 ML BOTTLE EACHEYE SCH ×2 (09:00→17:00)
[2022-12-02] MEDS: BRIMONIDINE TARTRATE OPHT SOLN 5 ML BOTTLE EACHEYE SCH ×2 (09:00→17:00)
[2022-12-02] MEDS: BACLOFEN (10 MG) 10 MG TABLET PO SCH ×2 (09:26→17:32)
[2022-12-02] MEDS: METFORMIN 500 MG TABLET PO SCH ×2 (09:26→17:32)
[2022-12-02] MEDS: FAMOTIDINE (20 MG) 20 MG TABLET PO SCH ×2 (09:26→17:32)
[2022-12-02] MEDS: MEMANTINE HCL 5 MG TABLET PO SCH ×2 (09:26→21:28)
[2022-12-02] MEDS: LIDOCAINE 5% (PATCH) 1 EA PATCH TP SCH (09:26)
[2022-12-02] MEDS: LINAGLIPTIN 5 MG TABLET PO SCH (09:26)
[2022-12-02] MEDS: CEFTRIAXONE 1 G VIAL IM SCH (11:57)
[2022-12-02 16:00] VITALS: BP 119/52
[2022-12-02 20:37] VITALS: BP 110/50
[2022-12-02] MEDS: LOSARTAN POTASSIUM 50 MG TABLET PO SCH (21:28)
[2022-12-02] MEDS: ATORVASTATIN 10 MG TABLET PO SCH (21:29)
[2022-12-02] MEDS: QUETIAPINE FUMARATE 25 MG TABLET PO SCH (21:29)
[2022-12-03 08:00] VITALS: BP 126/61
[2022-12-03] MEDS: BACLOFEN (10 MG) 10 MG TABLET PO SCH ×3 (09:51→18:49)
[2022-12-03] MEDS: METFORMIN 500 MG TABLET PO SCH ×3 (09:51→17:35)
[2022-12-03] MEDS: FAMOTIDINE (20 MG) 20 MG TABLET PO SCH ×3 (09:51→17:35)
[2022-12-03] MEDS: MEMANTINE HCL 5 MG TABLET PO SCH ×2 (09:51→21:00)
[2022-12-03] MEDS: LINAGLIPTIN 5 MG TABLET PO SCH (09:51)
[2022-12-03] MEDS: BRIMONIDINE TARTRATE OPHT SOLN 5 ML BOTTLE EACHEYE SCH ×2 (09:53→17:36)
[2022-12-03] MEDS: SALINE NASAL SPRAY 0.65% 1 BOTTLE BOTTLE NS SCH ×2 (09:54→17:37)
[2022-12-03] MEDS: PILOCARPINE 2% OPTH DROP 15 ML BOTTLE EACHEYE SCH ×2 (09:54→17:36)
[2022-12-03] MEDS: LIDOCAINE 5% (PATCH) 1 EA PATCH TP SCH (09:55)
[2022-12-03] MEDS: CEFTRIAXONE 1 G VIAL IM SCH ×2 (10:00→10:43)
--- NOTE | 2022-12-03 10:40 | NUR ---
Facility Contact: SW contacted pt's facility coke production heater [facility] ([phone]) and stated that they cannot accept pt back.
--- NOTE | 2022-12-03 10:41 | NUR ---
SHEA Family Contact: SHEA contacted pt's probate conservator Stephy ([phone]) and stated [facility] cannot accept pt. Stephy was yelling and screaming at this medical writer stating that this medical writer is not a Fairing Worker and wants to speak to the Doctor. SHEA notified, Dr. Leonardo to contact the daughter. Dr. Leonardo spoke to daughter and she was not understanding and requesting a monthly injection. Dr. Leonardo attempted to explain to the daughter that she is not allowed to do this. Daughter not understanding and wants a second opinion for director. SHEA notified Pratibha Guido and Dr. Lares.
[2022-12-03 16:00] VITALS: BP 108/57
[2022-12-03] MEDS: MAG HYDROX/AL HYDROX/SIMETH 30 ML UDC PO PRN ×2 (18:54→19:15)
[2022-12-03 19:30] VITALS: BP 112/62
[2022-12-03] MEDS: LOSARTAN POTASSIUM 50 MG TABLET PO SCH (21:41)
[2022-12-03] MEDS: ATORVASTATIN 10 MG TABLET PO SCH (21:42)
[2022-12-03] MEDS: QUETIAPINE FUMARATE 25 MG TABLET PO SCH (21:42)
--- NOTE | 2022-12-03 21:42 | NUR ---
Nurses Notes: Pt refused all her HS meds, offered 3x and explain to patient the importance of taking her meds, but Pt still refused it>
[2022-12-04 08:00] VITALS: BP 110/56
[2022-12-04] MEDS: LINAGLIPTIN 5 MG TABLET PO SCH (09:00)
[2022-12-04] MEDS: FAMOTIDINE (20 MG) 20 MG TABLET PO SCH ×2 (09:00→17:00)
[2022-12-04] MEDS: SALINE NASAL SPRAY 0.65% 1 BOTTLE BOTTLE NS SCH ×2 (09:00→17:00)
[2022-12-04] MEDS: PILOCARPINE 2% OPTH DROP 15 ML BOTTLE EACHEYE SCH ×2 (09:00→17:00)
[2022-12-04] MEDS: LIDOCAINE 5% (PATCH) 1 EA PATCH TP SCH (09:00)
[2022-12-04] MEDS: BRIMONIDINE TARTRATE OPHT SOLN 5 ML BOTTLE EACHEYE SCH ×2 (09:00→17:00)
[2022-12-04] MEDS: METFORMIN 500 MG TABLET PO SCH ×2 (09:00→17:00)
[2022-12-04] MEDS: MEMANTINE HCL 5 MG TABLET PO SCH ×2 (09:00→22:07)
[2022-12-04] MEDS: CEFTRIAXONE 1 G VIAL IM SCH (10:00)
--- NOTE | 2022-12-04 10:36 | NUR ---
RN-NOTES PATIENT STRONGLY REFUSED ALL HER AM MEDICATIONS DESPITE EXPLANATIONS OF THE RISK AND BENEFITS.PATIENT IS ARGUMENTATIVE STATED" I'M PERFECTLY HEALTHY AND I DON'T NEED MEDICATIONS NOTHING IS WRONG WITH ME".OFFERED X3 .
[2022-12-04] MEDS: risperiDONE-M 0.5 MG TAB.RAPDIS PO SCH ×2 (11:30→22:07)
--- NOTE | 2022-12-04 11:58 | NUR ---
RN-NOTES PATIENT REFUSED RISPERDAL 0.5MG P.O. STATED" I DON'T HAVE PROBLEMS, I DON'T TAKE MEDICATIONS". OFFERED X3.
[2022-12-04 16:00] VITALS: BP 148/57
[2022-12-04] MEDS: BACLOFEN (10 MG) 10 MG TABLET PO SCH (17:00)
--- NOTE | 2022-12-04 17:13 | NUR ---
RN-NOTES PATIENT IS VISIBLE IN THE UNIT ABLE TO WHEELED SELF AROUND THE UNIT, A/X2 GUARDED,NON COMPLIANT WITH MEDICATIONS. ATTENDED GROUPS. NOTED WITH EASILY ANGRY,ARGUMENTATIVE AND NEEDY BEHAVIOR. ALL NEEDS ATTENDED AND ANTICIPATED. WILL ENDORSE TO INCOMING NURSE FOR CONTINUITY OF CARE.
--- NOTE | 2022-12-04 17:15 | NUR ---
RN-NOTES PATIENT STRONGLY REFUSED ALL HER PM MEDICATIONS DESPITE EXPLANATIONS OF THE RISK AND BENEFITS.PATIENT IS ARGUMENTATIVE .OFFERED X3 .
[2022-12-04 20:16] VITALS: BP 113/62
[2022-12-04] MEDS ORDERED: risperiDONE 0.25 MG TABLET PO SCH (21:00)
[2022-12-04] MEDS: LOSARTAN POTASSIUM 50 MG TABLET PO SCH (22:08)
[2022-12-04] MEDS: ATORVASTATIN 10 MG TABLET PO SCH (22:08)
[2022-12-05 08:00] VITALS: BP 96/60
[2022-12-05] MEDS: PILOCARPINE 2% OPTH DROP 15 ML BOTTLE EACHEYE SCH ×2 (09:08→16:45)
[2022-12-05] MEDS: BRIMONIDINE TARTRATE OPHT SOLN 5 ML BOTTLE EACHEYE SCH ×2 (09:09→16:45)
[2022-12-05] MEDS: SALINE NASAL SPRAY 0.65% 1 BOTTLE BOTTLE NS SCH ×2 (09:09→16:46)
[2022-12-05] MEDS: METFORMIN 500 MG TABLET PO SCH ×2 (09:15→16:43)
[2022-12-05] MEDS: BACLOFEN (10 MG) 10 MG TABLET PO SCH ×2 (09:15→16:43)
[2022-12-05] MEDS: FAMOTIDINE (20 MG) 20 MG TABLET PO SCH ×2 (09:15→16:43)
[2022-12-05] MEDS: LINAGLIPTIN 5 MG TABLET PO SCH (09:16)
[2022-12-05] MEDS: MEMANTINE HCL 5 MG TABLET PO SCH ×2 (09:16→21:32)
[2022-12-05] MEDS: LIDOCAINE 5% (PATCH) 1 EA PATCH TP SCH (09:16)
[2022-12-05] MEDS: CEFTRIAXONE 1 G VIAL IM SCH (09:18)
[2022-12-05] MEDS: risperiDONE-M 0.5 MG TAB.RAPDIS PO SCH ×2 (09:20→21:32)
[2022-12-05 16:00] VITALS: BP 112/62
--- NOTE | 2022-12-05 18:47 | NUR ---
RN NOTES PT NOW RESTING. IN THE MORNING VERY PARANOID, REFUSED TO TAKE MEDICATION IF YOU DONT EXPLAIN IT TO HER SEVERAL TIMES. ROAMS IN THE HALLWAY O WHEELCHAIR. OTHER [facility] MED COMPLIANT. EXCEPTFOR THE IM ANTIBIOTIC. DR. LOZA AWARE.ORDERED FOR URINALYIS AND CULTURE. SPECIMEN COLLECTED AND SENT TO LAB. C/O [facility] STAFF ALL NEEDS MET. NOT IN ANY DISTRESS. WILL ENDORSE TO NEXT SHIFT FOR JUDY.
[2022-12-05 19:39] LABS: BILIRUBIN,URINE NEGATIVE (NEGATIVE); COLOR,URINE YELLOW (YELLOW); LEUKOCYTE ESTERASE ,URINE TRACE (NEGATIVE); NITRITE, URINE NEGATIVE (NEGATIVE); PROTEIN,URINE NEGATIVE (NEGATIVE); UGLUCOSE NEGATIVE (NEGATIVE); UROBILINOGEN,URINE 0.2 EU/dL (0.2)
[2022-12-05 19:51] LABS: BACTERIA,URINE None seen /HPF (None Seen); RBC,URINE 0-2 /HPF (0-2); SQUAMOUS EPITHELIAL CELL,UR 0-2 /HPF (None Seen); URINE AMORPHOUS URATE Moderate /HPF (None Seen)
[2022-12-05 20:00] VITALS: BP 92/95
--- NOTE | 2022-12-05 20:59 | NUR ---
INSTRUMENT AND ELECTRICAL TECHNICIAN NOTES: RECEIVED PATIENT ON THE HALLWAY SITTING ON THE WHEELCHAIR,ROAMS AROUND . A/O X2 WITH CONFUSION,VERY PARANOID.BREATHING EVEN AND NON-LABORED. NO C/O PAIN AT THIS TIME. ALL NEEDS ATTENDED AND ANTICIPATED.WILL CONTINUE TO MONITOR FOR SAFETY AND BEHAVIOR.
[2022-12-05] MEDS: ATORVASTATIN 10 MG TABLET PO SCH (21:36)
[2022-12-05] MEDS: LOSARTAN POTASSIUM 50 MG TABLET PO SCH (21:40)
[2022-12-06 08:00] VITALS: BP 102/52
[2022-12-06] MEDS: FAMOTIDINE (20 MG) 20 MG TABLET PO SCH ×3 (08:43→17:00)
[2022-12-06] MEDS: risperiDONE-M 0.5 MG TAB.RAPDIS PO SCH ×3 (08:43→21:00)
[2022-12-06] MEDS: METFORMIN 500 MG TABLET PO SCH ×3 (08:44→17:00)
[2022-12-06] MEDS: MEMANTINE HCL 5 MG TABLET PO SCH ×3 (08:44→21:00)
[2022-12-06] MEDS: BACLOFEN (10 MG) 10 MG TABLET PO SCH ×3 (08:44→17:00)
[2022-12-06] MEDS: LINAGLIPTIN 5 MG TABLET PO SCH (08:44)
[2022-12-06] MEDS: BRIMONIDINE TARTRATE OPHT SOLN 5 ML BOTTLE EACHEYE SCH ×3 (08:49→17:00)
[2022-12-06] MEDS: SALINE NASAL SPRAY 0.65% 1 BOTTLE BOTTLE NS SCH ×3 (08:49→17:00)
[2022-12-06] MEDS: PILOCARPINE 2% OPTH DROP 15 ML BOTTLE EACHEYE SCH ×3 (08:49→17:00)
[2022-12-06] MEDS: LIDOCAINE 5% (PATCH) 1 EA PATCH TP SCH (09:00)
[2022-12-06] MEDS: CEFTRIAXONE 1 G VIAL IM SCH (10:00)
[2022-12-06] MEDS: DIVALPROEX SODIUM 125 MG CAP.SPRINK PO SCH ×3 (10:53→17:00)
[2022-12-06] MEDS ORDERED: DIVALPROEX SODIUM 125 MG CAP.SPRINK PO SCH (11:00)
--- NOTE | 2022-12-06 12:08 | NUR ---
GPS/RN PT REFUSED ALL AM MEDS AND DEPAKOTE AT 1100 WELL. OFFERED ON MULTIPLE OCCASIONS. PT IS HYPERVERBAL AND ARGUMENTATIVE.
[2022-12-06] MEDS ORDERED: risperiDONE-M 0.5 MG TAB.RAPDIS PO SCH ×2 (13:00→21:00)
[2022-12-06 16:00] VITALS: BP 108/60
--- NOTE | 2022-12-06 16:03 | NUR ---
Dr. Leonardo made aware that the [facility] Hearing will be on Friday12/09/22 at 9:30AM
--- NOTE | 2022-12-06 19:30 | NUR ---
GPS RN NOTE, RECEIVED PATIENT AWAKE AND IN BED, NO S/S OR COMPLAINTS OF PAIN AT THIS TIME. PATIENT IS DISPLAYING NO S/S OF APPARENT DISTRESS AT THIS TIME. PATIENT BREATHING IS UNLABORED WITH EQUAL RISE AND FALL OF THE CHEST. PATIENT IS ALERT AND ORIENTED X 2-3 ON ROOM AIR WITH A SPO2 97%. PATIENT IS REFUSING MEDICATIONS, PARANOID, ANXIOUS AT TIMES, MANIPULATIVE, SUSPICIOUS, MAKES NEEDS KNOWN, AND COOPERATIVE. PATIENT DENIES SUICIDAL AND HOMICIDAL IDEATIONS AT THIS TIME. PATIENT ASSISTED WITH TURNING AND REPOSITIONING Q2HR AND PRN FOR COMFORT AND CIRCULATION. PATIENT HAS NO NEEDS AT THIS TIME. PATIENT EDUCATED ON THE USE OF THE CALL YUEN. PATIENT BED SIDE RAILS UP X 2 FOR SAFETY. PATIENT BED IS LOCKED, LOW, WITH BED ALARM ON. WILL CONTINUE TO MONITOR THIS PATIENT Q15 MINUTES WITH THE HELP OF STAFF TO MAINTAIN SAFETY.
[2022-12-06 20:00] VITALS: BP 114/56
--- NOTE | 2022-12-06 21:25 | NUR ---
GPS RN NOTE, PATIENT REFUSED RISPERDAL - M 0.5MG PO 2100 AND NAMENDA 5MG PO Q12HR. OFFERED BOTH MEDICATIONS THREE TIMES AND STILL PATIENT REFUSED STATING, " NO, I DON'T NEED THOSE MEDICATIONS THEIR IS NOTHING WRONG WITH MY MEMORY AND THEIR IS NOTHING WRONG WITH THE WAY I THINK ". EDUCATED PATIENT ON THE RISKS AND BENEFITS OF TAKING AND REFUSING RISPERDAL AND NAMENDA. WILL CONTINUE TO MONITOR THIS PATIENT WITH THE HELP OF STAFF.
[2022-12-06] MEDS: LOSARTAN POTASSIUM 50 MG TABLET PO SCH (21:34)
[2022-12-06] MEDS: ATORVASTATIN 10 MG TABLET PO SCH (21:35)
[2022-12-06] MEDS: ACETAMINOPHEN 325 MG TABLET PO PRN (21:35)
--- NOTE | 2022-12-06 21:36 | NUR ---
GPS RN NOTE, PATIENT HAS A COMPLAINT OF GENERALIZED PAIN AT 2 OUT OF 10 ON THE PAIN SCALE AND IS REQUESTING TYLENOL AT THIS TIME. PATIENT VITAL SIGNS ARE STABLE. GAVE TYLENOL 650MG PO Q6HR PRN ORDERED. WILL REASSESS PAIN AND I WILL CONTINUE TO MONITOR THIS PATIENT WITH THE HELP OF STAFF.
--- NOTE | 2022-12-07 01:19 | NUR ---
GPS RN NOTE, PATIENT SISTER NAME IS KINGSLEY # . PATIENT SISTER IS HELPFUL IN CONVINCING PATIENT TO BE COMPLAINT WITH HER MEDICATION.
[2022-12-07 08:00] VITALS: BP 115/69
[2022-12-07] MEDS: risperiDONE-M 0.5 MG TAB.RAPDIS PO SCH ×4 (08:00→22:17)
[2022-12-07] MEDS: METFORMIN 500 MG TABLET PO SCH ×2 (09:00→17:00)
[2022-12-07] MEDS: PILOCARPINE 2% OPTH DROP 15 ML BOTTLE EACHEYE SCH ×2 (09:00→17:00)
[2022-12-07] MEDS: LINAGLIPTIN 5 MG TABLET PO SCH (09:00)
[2022-12-07] MEDS: MEMANTINE HCL 5 MG TABLET PO SCH ×2 (09:00→22:13)
[2022-12-07] MEDS: BACLOFEN (10 MG) 10 MG TABLET PO SCH ×2 (09:00→17:00)
[2022-12-07] MEDS: DIVALPROEX SODIUM 125 MG CAP.SPRINK PO SCH ×3 (09:00→17:00)
[2022-12-07] MEDS: SALINE NASAL SPRAY 0.65% 1 BOTTLE BOTTLE NS SCH ×2 (09:00→17:00)
[2022-12-07] MEDS: BRIMONIDINE TARTRATE OPHT SOLN 5 ML BOTTLE EACHEYE SCH ×2 (09:00→17:00)
[2022-12-07] MEDS: LIDOCAINE 5% (PATCH) 1 EA PATCH TP SCH (09:00)
[2022-12-07] MEDS: FAMOTIDINE (20 MG) 20 MG TABLET PO SCH ×2 (09:00→17:00)
--- NOTE | 2022-12-07 10:31 | NUR ---
GPS/RN PT REFUSED MEDS SCHEDULED FOR 0800 AND 0900. OFFERED X3. REMAINS ARGUMENTATIVE.
--- NOTE | 2022-12-07 13:21 | NUR ---
GPS/RN PT REFUSED MEDS FOR 1300 OFFERED X3.
[2022-12-07 16:00] VITALS: BP 102/69
[2022-12-07 20:32] VITALS: BP 100/60
--- NOTE | 2022-12-07 20:40 | NUR ---
NURSE NOTES: RECEIVED PATIENT RESTING IN BED AWAKE, A/OX2 .ON ROOM AIR WITH SPO2 98%. NO S/S OR COMPLAINTS OF PAIN AT THIS TIME. PATIENT IS DISPLAYING NO S/S OF APPARENT DISTRESS AT THIS TIME. BREATHING EVEN AND NON-LABORED WITH EQUAL RISE AND FALL OF THE CHEST. . PATIENT IS COMPLIANT WITH MEDICATIONS, PARANOID, ANXIOUS AT TIMES, ABLE TO MAKES NEEDS KNOWN, AND COOPERATIVE. PATIENT DENIES SUICIDAL AND HOMICIDAL IDEATIONS AT THIS TIME. PATIENT ASSISTED WITH TURNING AND REPOSITIONING Q2HR AND PRN FOR COMFORT AND CIRCULATION. PATIENT EDUCATED ON THE USE OF THE CALL YUEN. PATIENT BED SIDE RAILS UP X 2 FOR SAFETY. PATIENT BED IS LOCKED, LOW, WITH BED ALARM ON. WILL CONTINUE TO MONITOR THIS PATIENT Q15 MINUTES WITH THE HELP OF STAFF TO MAINTAIN SAFETY.
[2022-12-07] MEDS: LOSARTAN POTASSIUM 50 MG TABLET PO SCH (22:00)
[2022-12-07] MEDS: ATORVASTATIN 10 MG TABLET PO SCH (22:15)
[2022-12-08 08:00] VITALS: BP 104/67
[2022-12-08] MEDS: risperiDONE-M 0.5 MG TAB.RAPDIS PO SCH ×4 (08:00→20:58)
[2022-12-08] MEDS: FAMOTIDINE (20 MG) 20 MG TABLET PO SCH ×2 (09:00→17:00)
[2022-12-08] MEDS: METFORMIN 500 MG TABLET PO SCH ×2 (09:00→17:00)
[2022-12-08] MEDS: LINAGLIPTIN 5 MG TABLET PO SCH (09:00)
[2022-12-08] MEDS: PILOCARPINE 2% OPTH DROP 15 ML BOTTLE EACHEYE SCH ×2 (09:00→17:00)
[2022-12-08] MEDS: BRIMONIDINE TARTRATE OPHT SOLN 5 ML BOTTLE EACHEYE SCH ×2 (09:00→17:00)
[2022-12-08] MEDS: DIVALPROEX SODIUM 125 MG CAP.SPRINK PO SCH ×3 (09:00→17:00)
[2022-12-08] MEDS: MEMANTINE HCL 5 MG TABLET PO SCH ×2 (09:00→20:58)
[2022-12-08] MEDS: BACLOFEN (10 MG) 10 MG TABLET PO SCH ×2 (09:00→17:00)
[2022-12-08] MEDS: SALINE NASAL SPRAY 0.65% 1 BOTTLE BOTTLE NS SCH ×2 (09:00→17:00)
[2022-12-08] MEDS: LIDOCAINE 5% (PATCH) 1 EA PATCH TP SCH (09:00)
--- NOTE | 2022-12-08 10:26 | NUR ---
GPS/RN PT REFUSED AM MEDS OFFERED X3.
--- NOTE | 2022-12-08 12:41 | NUR ---
GPS/RN PRINTOUTS ON DEPAKOTE AND RISPERDAL ALONG WITH MEDICATIONS LIST PROVIDED TO THE PATIENT
--- NOTE | 2022-12-08 13:40 | NUR ---
GPS/RN PT REFUSED 1300 MEDS OFFERED X3
[2022-12-08 16:00] VITALS: BP 116/55
--- NOTE | 2022-12-08 18:24 | NUR ---
GPS/RN PT REFUSED 1700 MEDS OFFERED X3
[2022-12-08 19:18] LABS: BASOPHILS % (AUTO) 0.3 % (0.0-2.0); EOSINOPHILS % (AUTO) 1.6 % (0.0-6.0); HEMATOCRIT 40 % (33-45); HEMOGLOBIN 12.8 g/dL (11.5-14.8); LYMPHOCYTES # (AUTO) 1.4 K/uL (0.8-4.8); LYMPHOCYTES % (AUTO) 18.5 % (20.0-44.0); MEAN CORPUSCULAR HGB CONC 32 g/dl (31.0-36.0); MEAN CORPUSCULAR VOLUME 94 fL (82-100); MONOCYTES # (AUTO) 0.5 K/uL (0.1-1.30); MONOCYTES % (AUTO) 6.5 % (2.0-12.0); NEUTROPHILS # (AUTO) 5.5 K/uL (1.8-8.9); NEUTROPHILS % (AUTO) 73.1 % (43.0-81.0); PLATELET COUNT (AUTO) 257 K/uL (150-450); WHITE BLOOD COUNT (AUTO) 7.5 K/uL (4.3-11.0)
[2022-12-08 19:52] LABS: ALBUMIN 3.1 g/dL (3.4-5.0); BILIRUBIN,TOTAL 0.2 mg/dL (0.2-1.0); CALCIUM, SERUM 8.8 mg/dL (8.5-10.1); POTASSIUM 3.3 mmol/L (3.5-5.1); TOTAL PROTEIN, SERUM 7.1 g/dL (6.4-8.2)
[2022-12-08 20:43] VITALS: BP 122/88
[2022-12-08] MEDS: LOSARTAN POTASSIUM 50 MG TABLET PO SCH (21:00)
[2022-12-08] MEDS: ATORVASTATIN 10 MG TABLET PO SCH (21:00)
[2022-12-08] MEDS: TEMAZEPAM 7.5 MG CAPSULE PO PRN (22:49)
--- NOTE | 2022-12-08 22:50 | NUR ---
Pt compliant with PM meds during shift. Pt c/o Insomnia and requested for sleeping pill. Least restrictive measures ineffective. Restoril 7.5 mg po prn given as ordered. Will continue to monitor.
--- NOTE | 2022-12-08 23:53 | NUR ---
Post 1 hr Restoril effective. Pt is asleep in bed easy to arouse. Bed at low position and bed alarm is on. Frequent visual check done for safety. Will continue to monitor. Will endorse to next shift.
[2022-12-09] MEDS: LORAZEPAM 0.5 MG TABLET PO PRN (00:18)
--- NOTE | 2022-12-09 00:20 | NUR ---
Pt woke up and started roaming hallways. Pt states, " I cant sleep and feeling anxious because of my court hearing tomorrow morning." Least restrictive measures ineffective. Ativan 0.5 mg po prn given as ordered. Will continue to monitor.
--- NOTE | 2022-12-09 01:30 | NUR ---
Post 1 hr pt awake lying in bed. Pt states, " i feel calmer but i still cant sleep because i keep thinking about my court hearing tomorrow morning. I will just lay here and still try to sleep." Pt is calm in bed with lights off. Will continue to monitor. Frequent visual check done for safety. Will endorse to next shift.
[2022-12-09 08:00] VITALS: BP 132/63
[2022-12-09] MEDS: risperiDONE-M 0.5 MG TAB.RAPDIS PO SCH ×3 (08:00→21:10)
--- NOTE | 2022-12-09 08:01 | NUR ---
RN-CO: Sister made aware that she cannot attend the [facility] hearing bec she is npot the responsible democrat. Sister understood.
[2022-12-09] MEDS: SALINE NASAL SPRAY 0.65% 1 BOTTLE BOTTLE NS SCH ×2 (08:25→17:50)
[2022-12-09] MEDS: PILOCARPINE 2% OPTH DROP 15 ML BOTTLE EACHEYE SCH ×2 (08:25→17:51)
[2022-12-09] MEDS: DIVALPROEX SODIUM 125 MG CAP.SPRINK PO SCH ×3 (08:25→21:09)
[2022-12-09] MEDS: BRIMONIDINE TARTRATE OPHT SOLN 5 ML BOTTLE EACHEYE SCH ×2 (08:25→17:50)
[2022-12-09] MEDS: METFORMIN 500 MG TABLET PO SCH ×2 (08:25→17:47)
[2022-12-09] MEDS: BACLOFEN (10 MG) 10 MG TABLET PO SCH ×2 (08:26→17:47)
[2022-12-09] MEDS: MEMANTINE HCL 5 MG TABLET PO SCH ×2 (08:26→21:10)
[2022-12-09] MEDS: LINAGLIPTIN 5 MG TABLET PO SCH (08:27)
[2022-12-09] MEDS: LIDOCAINE 5% (PATCH) 1 EA PATCH TP SCH (08:27)
[2022-12-09] MEDS: FAMOTIDINE (20 MG) 20 MG TABLET PO SCH ×2 (08:27→17:47)
--- NOTE | 2022-12-09 09:16 | NUR ---
RN-CO: NOTIFIED DAUGHTER BECCA AND ANSWERED ALL HER QUESTIONS TOGETHER W/ GPS SW ABOUT PT'S RIESE HEARING TODAY.
--- NOTE | 2022-12-09 11:18 | NUR ---
Court Hearing: Patient's court hearing for 30 day was upheld and she is currently riesed. SHEA notified Becca BERNABE to notify probate conservator Stephy ([phone]).
--- NOTE | 2022-12-09 11:18 | NUR ---
Court Notification: SW contacted pt's probate conservator Stephy ([phone]) with charge nurse Ginny to notify of riese hearing and 30 day.
[2022-12-09] MEDS ORDERED: OLANZAPINE 10 MG VIAL IM PRN (12:00)
--- NOTE | 2022-12-09 15:28 | NUR ---
RN-CO: NOTIFIED DR LOZA REGARDING EKG RESULT.
[2022-12-09 16:00] VITALS: BP 125/65
[2022-12-09 20:24] VITALS: BP 118/68
[2022-12-09] MEDS: ATORVASTATIN 10 MG TABLET PO SCH (21:10)
[2022-12-09] MEDS: LOSARTAN POTASSIUM 50 MG TABLET PO SCH (21:10)
--- NOTE | 2022-12-10 07:00 | NUR ---
UNDERCOATER OPENING NOTE PATIENT A/A/OX3, ANGOLAN SPEAKING. DENIES PAIN. NO S/S OF ABNORMAL BEHAVIOR NOTED AT PRESENT. PATIENT LYING IN BED AT PRESENT AND INSTRUCTED TO CALL FOR ASSISTANCE NEEDED. SAFETY MEASURES IN PLACE BED LOCK TO THE LOWEST POSITION, CALL LIGHT, TABLE WITHIN REACH. CONT. TO MONITOR.
[2022-12-10 08:00] VITALS: BP 114/66
[2022-12-10] MEDS: MEMANTINE HCL 5 MG TABLET PO SCH ×2 (10:02→21:06)
[2022-12-10] MEDS: risperiDONE-M 0.5 MG TAB.RAPDIS PO SCH ×2 (10:02→21:06)
[2022-12-10] MEDS: FAMOTIDINE (20 MG) 20 MG TABLET PO SCH ×3 (10:02→17:00)
[2022-12-10] MEDS: METFORMIN 500 MG TABLET PO SCH ×3 (10:02→17:00)
[2022-12-10] MEDS: DIVALPROEX SODIUM 125 MG CAP.SPRINK PO SCH ×2 (10:02→21:06)
[2022-12-10] MEDS: LINAGLIPTIN 5 MG TABLET PO SCH (10:03)
[2022-12-10] MEDS: BACLOFEN (10 MG) 10 MG TABLET PO SCH ×3 (10:03→17:00)
[2022-12-10] MEDS: PILOCARPINE 2% OPTH DROP 15 ML BOTTLE EACHEYE SCH ×2 (10:20→16:50)
[2022-12-10] MEDS: SALINE NASAL SPRAY 0.65% 1 BOTTLE BOTTLE NS SCH ×2 (10:20→16:51)
[2022-12-10] MEDS: BRIMONIDINE TARTRATE OPHT SOLN 5 ML BOTTLE EACHEYE SCH ×2 (10:20→16:49)
[2022-12-10] MEDS: LIDOCAINE 5% (PATCH) 1 EA PATCH TP SCH (10:38)
[2022-12-10] MEDS: MAG HYDROX/AL HYDROX/SIMETH 30 ML UDC PO PRN (15:06)
--- NOTE | 2022-12-10 15:06 | NUR ---
DIRECTOR PROCESS IMPROVEMENT NOTE PATIENT C/O OF NAUSEAS, MAALOX GIVEN DIRECTED BY .
[2022-12-10 16:00] VITALS: BP 92/52
--- NOTE | 2022-12-10 17:00 | NUR ---
CLAY PIGEON SETTER NOTE PATIENT REFUSED TAKE PO MEDS. PATIENT STATED I DO NOT TAKE PILLS. I DO NOT KNOW THE DOCTOR WHO PRESCRIBED. I EXPLAINED TO PATIENT THE DOCTOR WHO PRESCRIBED UPON ADMISSION , ALSO EXPLAINED NAME OF THE MEDICATION, PURPOSE OF THE MEDICATION. BUT PATIENT SAID I AM NOT TAKING PILLS. WILL CONT. TO MONITOR.
--- NOTE | 2022-12-10 19:30 | NUR ---
ROUNDING MACHINE TENDER CLOSING NOTE PATIENT AWAKE, WITH PERIODS OF CONFUSION, REFUSED TO TAKE 1700 PO MEDS. PATIENT IS SITTING ON HER W/C. PATIENT DENIES PAIN, DENIES NAUSEAS MAALOX WAS EFFECTIVE. SAFETY MEASURES IN PLACE BED LOCK TO THE LOWEST POSITION, TABLE WITHIN REACH. I WILL ENDORSE TO THE FOLLOWING NURSE.
[2022-12-10 20:03] VITALS: BP 114/52
[2022-12-10] MEDS: ATORVASTATIN 10 MG TABLET PO SCH (21:06)
[2022-12-10] MEDS: LOSARTAN POTASSIUM 50 MG TABLET PO SCH (21:07)
--- NOTE | 2022-12-10 21:13 | NUR ---
Pt compliant with care. Took all PM meds as ordered. Was suspicious of her meds at first but then took her meds after explaining to pt the benefits of taking her meds, and if she refuses her antipsychotic she will receive an IM injection. Charge nurse aware. Will endorse to next shift.
[2022-12-11 08:00] VITALS: BP 100/50
[2022-12-11] MEDS: DIVALPROEX SODIUM 125 MG CAP.SPRINK PO SCH ×2 (08:49→21:27)
[2022-12-11] MEDS: LINAGLIPTIN 5 MG TABLET PO SCH (08:50)
[2022-12-11] MEDS: MEMANTINE HCL 5 MG TABLET PO SCH ×2 (08:50→21:28)
[2022-12-11] MEDS: LIDOCAINE 5% (PATCH) 1 EA PATCH TP SCH (08:51)
[2022-12-11] MEDS: risperiDONE-M 0.5 MG TAB.RAPDIS PO SCH ×2 (08:51→21:28)
[2022-12-11] MEDS: BRIMONIDINE TARTRATE OPHT SOLN 5 ML BOTTLE EACHEYE SCH ×2 (08:52→17:46)
[2022-12-11] MEDS: PILOCARPINE 2% OPTH DROP 15 ML BOTTLE EACHEYE SCH ×2 (08:52→17:47)
[2022-12-11] MEDS: SALINE NASAL SPRAY 0.65% 1 BOTTLE BOTTLE NS SCH ×2 (08:52→17:46)
[2022-12-11 16:00] VITALS: BP 107/56
--- NOTE | 2022-12-11 16:04 | NUR ---
SHEA Transfer Note: Patient will be transferred to the medical floor due to being sedated. Dr. Lares will continue the hold. Patient resides at [address] [place] [address]; ([phone]). Patient has no supportive contact at this time. Addendum: 12/12/22 at 0807 by SHEA ASTUDILLO wrong patient
[2022-12-11] MEDS: BACLOFEN (10 MG) 10 MG TABLET PO SCH (17:45)
[2022-12-11] MEDS: METFORMIN 500 MG TABLET PO SCH (17:45)
[2022-12-11] MEDS: FAMOTIDINE (20 MG) 20 MG TABLET PO SCH (17:45)
[2022-12-11 20:12] VITALS: BP 101/52
[2022-12-11] MEDS: ATORVASTATIN 10 MG TABLET PO SCH (21:29)
[2022-12-11] MEDS ORDERED: risperiDONE-M 0.5 MG TAB.RAPDIS PO SCH (22:00)
[2022-12-11] MEDS: LOSARTAN POTASSIUM 50 MG TABLET PO SCH (22:00)
--- NOTE | 2022-12-11 22:56 | NUR ---
RN NOTES CALLED DR. LOZA FOR THE CLARIFICATION OF RISPERDAL-M ORDER. GAVE 0.5MG PO AT 2100 AND ORDERED ANOTHER 0.5MG PO ONCE. NOT4ED AND CARRIED OUT. WILL ENDORSE TO THE DAY SHIFT. Addendum: 12/12/22 at 0644 by MITESH BARRIENTOS RN DR. LOZA ORDERED TO DISCONTINUE RISPERDAL-M 0.5MG BID AND CHANGED IT TO DAILY AT 09:00AM. NOTED AND CARRIED OUT. WILL ENDORSE TO THE NEXT SHIFT.
[2022-12-11] MEDS ORDERED: risperiDONE-M 0.5 MG TAB.RAPDIS PO ONE (23:00)
[2022-12-11] MEDS: ACETAMINOPHEN 325 MG TABLET PO PRN (23:14)
--- NOTE | 2022-12-12 07:20 | NUR ---
GPS RN OPENING NOTE PATIENT IS ASLEEP. WOKE UP PATIENT AND ASSESSED FOR ORIENTATION. PATIENT IS ALERT/OX 2-3. DENIES PAIN. NO S/S OF ABNORMAL BEHAVIOR NOTED AT PRESENT. PATIENT LYING IN BED AT PRESENT AND INSTRUCTED TO CALL FOR ASSISTANCE NEEDED. SAFETY MEASURES IN PLACE BED LOCK TO THE LOWEST POSITION, CALL LIGHT, TABLE WITHIN REACH. WILL CONTINUE WITH PLAN OF CARE.
[2022-12-12 08:00] VITALS: BP 105/60
[2022-12-12] MEDS: PILOCARPINE 2% OPTH DROP 15 ML BOTTLE EACHEYE SCH ×2 (08:15→17:00)
[2022-12-12] MEDS: LIDOCAINE 5% (PATCH) 1 EA PATCH TP SCH (08:15)
[2022-12-12] MEDS: SALINE NASAL SPRAY 0.65% 1 BOTTLE BOTTLE NS SCH ×2 (08:15→17:00)
[2022-12-12] MEDS: DIVALPROEX SODIUM 125 MG CAP.SPRINK PO SCH ×2 (08:15→21:59)
[2022-12-12] MEDS: BRIMONIDINE TARTRATE OPHT SOLN 5 ML BOTTLE EACHEYE SCH ×2 (08:15→17:00)
[2022-12-12] MEDS: METFORMIN 500 MG TABLET PO SCH ×2 (08:16→17:00)
[2022-12-12] MEDS: LINAGLIPTIN 5 MG TABLET PO SCH (08:16)
[2022-12-12] MEDS: BACLOFEN (10 MG) 10 MG TABLET PO SCH ×2 (08:16→17:00)
[2022-12-12] MEDS: MEMANTINE HCL 5 MG TABLET PO SCH ×2 (08:16→21:59)
[2022-12-12] MEDS: FAMOTIDINE (20 MG) 20 MG TABLET PO SCH ×2 (08:16→17:00)
[2022-12-12] MEDS ORDERED: risperiDONE-M 0.5 MG TAB.RAPDIS PO SCH ×2 (09:00→22:00)
--- NOTE | 2022-12-12 10:35 | NUR ---
GPS RN NOTE PATIENT WAS REFUSING TAKING ALL HER MEDS, WAS ARGUING AND BARGAINING. OLANZAPINE TAKEN FROM OMNICEL AND PREPARED. PATIENT FINALLY TOOK ORAL MEDICATIONS. WASTED OLANZAPINE AND RECORDED ON OMNICEL WITH ANOTHER NURSE A WITNESS.
[2022-12-12] MEDS ORDERED: MISCELLANEOUS MED 1 EA EA XX ONE (11:30)
--- NOTE | 2022-12-12 12:10 | NUR ---
GPS RN NOTE PATIENT SEEN BY DR. LOZA AND UPDATED OF PATIENT'S BEHAVIOR. WITH ORDERS MADE AND CARRIED OUT. EKG DONE AND RELAYED TO MD. EKG CLEARED BY COMMUNICATIONS CONSULTANT TO GIVE A 1 TIME INVEGA IM PRN FOR ANTI PSYCHOTIC MEDICATION REFUSAL TONIGHT INSTEAD OF THE Q12 ZYPREXA. WILL ENDORSE ACCORDINGLY. IN STABLE CONDITION.
[2022-12-12 16:00] VITALS: BP 107/66
--- NOTE | 2022-12-12 17:22 | NUR ---
GPS NOTE DR. LOZA PROVIDED INVEGA MEDICATION TO BE ADMINISTERED TONIGHT. PER MD, GIVE HALF OF THE MEDICATION SHE PROVIDED WHICH IS 117MG OR 0.75ML OF THE 234MG OR 1.5ML OF THE PREFILLED SYRINGE. CHARGE NURSE AWARE AND VERIFIED MD ORDER. SPOKE WITH PHARMACIST AND GAVE INSTRUCTION HOW TO PLACE THE ORDER IN THE [facility]. ORDERS MADE AND CARRIED OUT. WILL ENDORSE ACCORDINGLY.
--- NOTE | 2022-12-12 17:42 | NUR ---
GPS NOTE PATIENT REFUSED MEDICATIONS. EXPLAINED IMPORTANCE OF MEDICATION AND MEDICATION REGIMEN. VERBALIZED UNDERSTANDING BUT INSIST SHE TAKES IT ONLY ONCE A DAY AND WILL NOT TAKE ANYTHING ANYMORE FOR THE DAY UNLESS SHE SPEAKS WITH THE DOCTOR. PATIENT WAS STARTING TO GET AGITATED. PROVIDED SOME SPACE TO MELLOW DOWN. PATIENT AT DINING ROOM AND WENT BACK TO WATCHING TV.
[2022-12-12] MEDS ORDERED: MISCELLANEOUS MED 1 EA EA IM ONE ×2 (18:00→21:00)
--- NOTE | 2022-12-12 18:30 | NUR ---
GPS NOTE ADMINISTERED INVEGA IM ORDERED. PROCEDURE TOLERATED WELL. PATIENT INITIALLY WAS VERY CONFRONTATIVE AND WAS REFUSING BUT EVENTUALLY COOPERATED WHEN SHE KNOWS SHE WILL BE ADMINISTERED THE MEDICATION DESPITE HER PROTEST.
--- NOTE | 2022-12-12 19:00 | NUR ---
GPS RN CLOSING NOTE PATIENT IS ALERT/OX 2-3. DENIES PAIN. PATIENT WAS NON COMPLIANT WITH MEDICATION AND WAS ARGUMENTATIVE AND WAS BARGAINING AT ONE POINT. SAFETY MEASURES IN PLACE BED LOCK TO THE LOWEST POSITION, CALL LIGHT, TABLE WITHIN REACH. WILL ENDORSE TO NEXT SHIFT FOR CONTINUITY OF CARE.
[2022-12-12 20:00] VITALS: BP 101/63
--- NOTE | 2022-12-12 21:00 | NUR ---
SERVICE OBSERVER CHIEF NOTES: RECEIVED PATIENT ON THE HALLWAY SITTING ON THE WHEELCHAIR,ROAMS AROUND . A/O X2 WITH CONFUSION,VERY PARANOID.BREATHING EVEN AND NON-LABORED. NO C/O PAIN AT THIS TIME. ALL NEEDS ATTENDED AND ANTICIPATED.WILL CONTINUE TO MONITOR FOR SAFETY AND BEHAVIOR.
[2022-12-12] MEDS: ATORVASTATIN 10 MG TABLET PO SCH (21:59)
[2022-12-12] MEDS: LOSARTAN POTASSIUM 50 MG TABLET PO SCH (22:00)
[2022-12-13 08:00] VITALS: BP 119/60
[2022-12-13] MEDS: LIDOCAINE 5% (PATCH) 1 EA PATCH TP SCH ×2 (09:00→11:09)
[2022-12-13] MEDS: BRIMONIDINE TARTRATE OPHT SOLN 5 ML BOTTLE EACHEYE SCH ×2 (11:04→17:46)
[2022-12-13] MEDS: SALINE NASAL SPRAY 0.65% 1 BOTTLE BOTTLE NS SCH ×2 (11:04→17:47)
[2022-12-13] MEDS: PILOCARPINE 2% OPTH DROP 15 ML BOTTLE EACHEYE SCH ×2 (11:04→17:46)
[2022-12-13] MEDS: MEMANTINE HCL 5 MG TABLET PO SCH ×2 (11:08→21:27)
[2022-12-13] MEDS: BACLOFEN (10 MG) 10 MG TABLET PO SCH ×2 (11:08→17:49)
[2022-12-13] MEDS: LINAGLIPTIN 5 MG TABLET PO SCH (11:08)
[2022-12-13] MEDS: METFORMIN 500 MG TABLET PO SCH ×2 (11:08→17:49)
[2022-12-13] MEDS: FAMOTIDINE (20 MG) 20 MG TABLET PO SCH ×2 (11:08→17:49)
[2022-12-13] MEDS: DIVALPROEX SODIUM 125 MG CAP.SPRINK PO SCH ×2 (11:08→21:28)
[2022-12-13] MEDS: BENZTROPINE MESYLATE (1 MG) 1 MG TABLET PO SCH ×2 (11:09→17:49)
[2022-12-13 16:00] VITALS: BP 127/68
[2022-12-13 20:00] VITALS: BP 117/61
--- NOTE | 2022-12-13 20:15 | NUR ---
DOUGH MIXER NOTES: RECEIVED PATIENT VISIBLE ON THE UNIT.ABLE TO WHEELED HERSELF . A/O X2 WITH CONFUSION,VERY PARANOID. VERY NEEDY .BREATHING NON-LABORED WITH EQUAL RISE AND FALL OF THE CHEST. NO C/O PAIN AT THIS TIME. ALL NEEDS ATTENDED AND ANTICIPATED.WILL CONTINUE TO MONITOR FOR SAFETY AND BEHAVIOR.
[2022-12-13] MEDS: ATORVASTATIN 10 MG TABLET PO SCH (21:26)
[2022-12-13] MEDS: LOSARTAN POTASSIUM 50 MG TABLET PO SCH (21:27)
[2022-12-14 08:00] VITALS: BP 134/65
[2022-12-14] MEDS: PILOCARPINE 2% OPTH DROP 15 ML BOTTLE EACHEYE SCH ×3 (09:00→17:00)
[2022-12-14] MEDS: MEMANTINE HCL 5 MG TABLET PO SCH ×3 (09:00→21:50)
[2022-12-14] MEDS: BRIMONIDINE TARTRATE OPHT SOLN 5 ML BOTTLE EACHEYE SCH ×3 (09:00→17:00)
[2022-12-14] MEDS: FAMOTIDINE (20 MG) 20 MG TABLET PO SCH ×3 (09:00→17:00)
[2022-12-14] MEDS: METFORMIN 500 MG TABLET PO SCH ×3 (09:00→17:00)
[2022-12-14] MEDS: BACLOFEN (10 MG) 10 MG TABLET PO SCH ×3 (09:00→17:00)
[2022-12-14] MEDS: LIDOCAINE 5% (PATCH) 1 EA PATCH TP SCH (09:00)
[2022-12-14] MEDS: DIVALPROEX SODIUM 125 MG CAP.SPRINK PO SCH ×3 (09:00→21:50)
[2022-12-14] MEDS: SALINE NASAL SPRAY 0.65% 1 BOTTLE BOTTLE NS SCH ×3 (09:00→17:00)
[2022-12-14] MEDS: BENZTROPINE MESYLATE (1 MG) 1 MG TABLET PO SCH ×3 (09:00→17:00)
[2022-12-14] MEDS: LINAGLIPTIN 5 MG TABLET PO SCH (10:31)
--- NOTE | 2022-12-14 11:00 | NUR ---
GPS/RN PT REFUSED AM MEDS OFFERED X3. ENCOURAGED BY COURTNEY VAZ TO TAKE MEDS IN [place]. PT REFUSED ANYWAY. DR ESCOBEDO MADE AWARE.
[2022-12-14] MEDS: risperiDONE-M 0.5 MG TAB.RAPDIS PO SCH ×2 (12:30→21:50)
[2022-12-14] MEDS ORDERED: OLANZAPINE 10 MG VIAL IM PRN (12:30)
[2022-12-14 16:00] VITALS: BP 126/66
--- NOTE | 2022-12-14 19:48 | NUR ---
bituminous distributor operator notes: Received patient sitting in bed talking to other patiients. a/o x2. suspicious. paranoid. confused. on room air. breathing even and unlabored. no acute distress noted. no c/o pain at this time. will continue to monitor for safety and behavior.
[2022-12-14 20:00] VITALS: BP 131/57
[2022-12-14] MEDS: ATORVASTATIN 10 MG TABLET PO SCH (21:50)
[2022-12-14] MEDS: LOSARTAN POTASSIUM 50 MG TABLET PO SCH (21:50)
--- NOTE | 2022-12-15 06:40 | NUR ---
SUPERVISOR CUTTING AND SEWING ROOM NOTES: PATIENT ASLEEP AT THIS TIME, EASILY AROUSABLE. NO ACUTE DISTRESS NOTED. CALM. NO C/O OF PAIN AT THIS TIME. PARANOID. FORGETFUL. SUSPICIOUS. ARGUMENTATIVE. COMPLIANT WITH MEDICATION DURING SHIFT. AMBULATORY WITH ASSISTANCE OF WALKER. ALL NEEDS ANTICIPATED AND ATTENDED. WILL ENDORSE TO ONCOMING SHIFT FOR CONTINUITY OF CARE.
--- NOTE | 2022-12-15 07:20 | NUR ---
TELEGRAPHIC SERVICE DISPATCHER OPENING NOTE PATIENT RECEIVED LYING IN BED, AWAKE, ALERT AND 0X2 WITH PERIODS OF CONFUSION. RE-ORIENTED TO TIME AND DATE. PATIENT IS COOPERATIVE AT PRESENT. DENIES PAIN AT PRESENT. NO S/S OF AGITATION NOTED AT PRESENT. SAFETY MEASURE IN PLACE. BED LOCK TO THE LOWEST POSITION, TABLE AND WALKER WITHIN REACH. CONT. TO MONITOR.
[2022-12-15 08:00] VITALS: BP 126/61
[2022-12-15] MEDS: PILOCARPINE 2% OPTH DROP 15 ML BOTTLE EACHEYE SCH ×4 (09:00→18:27)
[2022-12-15] MEDS: BRIMONIDINE TARTRATE OPHT SOLN 5 ML BOTTLE EACHEYE SCH ×6 (09:00→18:30)
[2022-12-15] MEDS: SALINE NASAL SPRAY 0.65% 1 BOTTLE BOTTLE NS SCH ×2 (09:00→17:00)
[2022-12-15] MEDS: FAMOTIDINE (20 MG) 20 MG TABLET PO SCH ×4 (09:03→18:26)
[2022-12-15] MEDS: LIDOCAINE 5% (PATCH) 1 EA PATCH TP SCH (09:03)
[2022-12-15] MEDS: DIVALPROEX SODIUM 125 MG CAP.SPRINK PO SCH ×2 (09:04→22:03)
[2022-12-15] MEDS: METFORMIN 500 MG TABLET PO SCH ×4 (09:04→18:26)
[2022-12-15] MEDS: LINAGLIPTIN 5 MG TABLET PO SCH (09:04)
[2022-12-15] MEDS: BACLOFEN (10 MG) 10 MG TABLET PO SCH ×4 (09:04→18:26)
[2022-12-15] MEDS: BENZTROPINE MESYLATE (1 MG) 1 MG TABLET PO SCH ×4 (09:04→18:24)
[2022-12-15] MEDS: risperiDONE-M 0.5 MG TAB.RAPDIS PO SCH ×2 (09:05→22:03)
[2022-12-15] MEDS: MEMANTINE HCL 5 MG TABLET PO SCH ×2 (12:47→22:04)
[2022-12-15] MEDS: ACETAMINOPHEN 325 MG TABLET PO PRN (12:48)
--- NOTE | 2022-12-15 12:48 | NUR ---
TILE POWER SHEAR OPERATOR NOTE PATIENT C/O RIGHT NECK PAIN, TYLENOL PO GIVEN DIRECTED. PAIN LEVEL IN 0-10 IS 3. CONT. TO MONITOR.
--- NOTE | 2022-12-15 14:00 | NUR ---
MOLD RELEASE WORKER NOTE PATIENT DENIES PAIN.
[2022-12-15 16:00] VITALS: BP 112/74
--- NOTE | 2022-12-15 19:00 | NUR ---
AS400 PROGRAMMER ANALYST CLOSING NOTE PATIENT A/OX3, REFUSED MEDS AT 1700, PATIENT SAID THAT SHE DOES NOT TAKE PILLS IN THE AFTERNOON. I EXPLAINED TO PATIENT THAT SHE HAS BEEN TAKING THE SAME MEDICATION SINCE ADMISSION. PATIENT REFUSED TO TAKE HER MEDS. NOTIFIED TO MAGUE BERNABEORTHOPEDIC PHYSICAL THERAPIST NURSE. SAFETY MEASURES IN PLACE, BED LOCK IN THE LOWEST POSITION, TABLE AND WALKER WITHI REACH. I WILL ENDORSE INFORMATION TO THE FOLLOWING NURSE.
[2022-12-15 20:37] VITALS: BP 103/62
[2022-12-15] MEDS: LOSARTAN POTASSIUM 50 MG TABLET PO SCH (22:04)
[2022-12-15] MEDS: ATORVASTATIN 10 MG TABLET PO SCH (22:04)
[2022-12-16] MEDS: TEMAZEPAM 7.5 MG CAPSULE PO PRN (00:26)
[2022-12-16] MEDS: ACETAMINOPHEN 325 MG TABLET PO PRN (01:25)
[2022-12-16 08:00] VITALS: BP 130/74
[2022-12-16] MEDS: SALINE NASAL SPRAY 0.65% 1 BOTTLE BOTTLE NS SCH ×2 (08:53→17:45)
[2022-12-16] MEDS: LIDOCAINE 5% (PATCH) 1 EA PATCH TP SCH (08:54)
[2022-12-16] MEDS: risperiDONE-M 0.5 MG TAB.RAPDIS PO SCH ×2 (08:55→21:16)
[2022-12-16] MEDS: LINAGLIPTIN 5 MG TABLET PO SCH (08:55)
[2022-12-16] MEDS: DIVALPROEX SODIUM 125 MG CAP.SPRINK PO SCH ×2 (08:55→21:16)
[2022-12-16] MEDS: MEMANTINE HCL 5 MG TABLET PO SCH ×2 (08:58→21:16)
--- NOTE | 2022-12-16 11:23 | NUR ---
SHEA Family Contact: SHEA contacted pt's probate conservator Stephy ([phone]) to discuss pt's discharge and placement. SHEA left a detailed voicemail.
--- NOTE | 2022-12-16 13:53 | NUR ---
SHEA NOTE: SW CONTACTED PT'S DAUGHTER BECCA ([phone]) TO DISCUSS PLACEMENT. SW WILL CONTACT PT'S BOARD AND CARE. SHEA CONTACTED HAL[employer] ASSISTANT WOMEN'S BASKETBALL COACH ([phone]) AND LEFT A VOICEMAIL TO CONTACT THIS FIGHTING VEHICLE SYSTEMS MAINTAINER. SW GAVE DAUGHTER BECCA NURSING FACILITY OPTIONS AND DAUGHTER STATED SHE WOULD WANT HER TO RETURN BACK TO HER B & C. DAUGHTER REQUESTED TO CONTACT [facility] ([phone]) TO FIND OUT APPLICATION. SHEA CONTACTED AND LEFT A DETAILED VOICEMAIL TO CONTACT THIS FIGHTING VEHICLE SYSTEMS MAINTAINER. SW GAVE HER NURSING FACILITY OPTIONS AND SHE REFUSED.
[2022-12-16 16:00] VITALS: BP 115/60
[2022-12-16] MEDS: BENZTROPINE MESYLATE (1 MG) 1 MG TABLET PO SCH (17:43)
[2022-12-16] MEDS: METFORMIN 500 MG TABLET PO SCH (17:43)
[2022-12-16] MEDS: FAMOTIDINE (20 MG) 20 MG TABLET PO SCH (17:43)
[2022-12-16] MEDS: BACLOFEN (10 MG) 10 MG TABLET PO SCH (17:45)
[2022-12-16] MEDS: BRIMONIDINE TARTRATE OPHT SOLN 5 ML BOTTLE EACHEYE SCH (17:46)
[2022-12-16 20:14] VITALS: BP 119/62
[2022-12-16] MEDS: ATORVASTATIN 10 MG TABLET PO SCH (21:16)
[2022-12-16] MEDS: LOSARTAN POTASSIUM 50 MG TABLET PO SCH (21:17)
--- NOTE | 2022-12-17 07:10 | NUR ---
SAMPLE TAKER OPERATOR OPENING NOTE PATIENT SLEEPING, RESTING, NO S/S OF DISTRESS NOTED. SAFETY MEASURES IN PLACE, BED LOCK TO THE LOWEST POSITION, TABLE AND WALKER WITHIN REACH. CONT. TO ,MONITOR.
[2022-12-17 08:00] VITALS: BP 98/47
[2022-12-17] MEDS: LINAGLIPTIN 5 MG TABLET PO SCH (09:24)
[2022-12-17] MEDS: DIVALPROEX SODIUM 125 MG CAP.SPRINK PO SCH ×2 (09:24→21:41)
[2022-12-17] MEDS: LIDOCAINE 5% (PATCH) 1 EA PATCH TP SCH (09:24)
[2022-12-17] MEDS: MEMANTINE HCL 5 MG TABLET PO SCH ×3 (09:25→22:05)
[2022-12-17] MEDS: BENZTROPINE MESYLATE (1 MG) 1 MG TABLET PO SCH ×2 (09:25→18:17)
[2022-12-17] MEDS: risperiDONE-M 0.5 MG TAB.RAPDIS PO SCH ×3 (09:25→22:05)
[2022-12-17] MEDS: BACLOFEN (10 MG) 10 MG TABLET PO SCH ×2 (09:25→17:50)
[2022-12-17] MEDS: METFORMIN 500 MG TABLET PO SCH ×2 (09:25→17:50)
[2022-12-17] MEDS: FAMOTIDINE (20 MG) 20 MG TABLET PO SCH ×2 (09:25→17:50)
--- NOTE | 2022-12-17 10:31 | NUR ---
Facility Contact: SHEA spoke with Jade drilling and production superintendent of [facility] ([phone]) to re-assess the pt. Gina will re-assess the pt this afternoon. SHEA faxed pt's clinicals ([phone]).
[2022-12-17] MEDS: PILOCARPINE 2% OPTH DROP 15 ML BOTTLE EACHEYE SCH ×2 (14:09→18:14)
[2022-12-17] MEDS: SALINE NASAL SPRAY 0.65% 1 BOTTLE BOTTLE NS SCH ×2 (14:09→18:15)
[2022-12-17] MEDS: BRIMONIDINE TARTRATE OPHT SOLN 5 ML BOTTLE EACHEYE SCH ×2 (14:09→18:13)
--- NOTE | 2022-12-17 14:10 | NUR ---
MONITOR TECHNICIAN NOTE PATIENT REFUSED THE EYE DROPS THIS MORNING BRIMONIDINE AND PILOCAPINE. ALSO PATIENT REFUSED SALINE NASAL SPRAY THIS MORNING. PATIENT REQUESTED TO HAVE THEM NOW. I ADMINISTERED AT PRESENT.
--- NOTE | 2022-12-17 15:15 | NUR ---
SHEA Family Contact: SW contacted pt's probate conservator Stephy ([phone]) and left a voicemail that the facility assessed the pt and gave information.
--- NOTE | 2022-12-17 19:00 | NUR ---
RETAIL OFFICE MANAGER CLOSING NOTE PATIENT AWAKE, AMBULATING IN THE HALLWAY WITH A WALKER. PATIENT DENIES PAIN. NO S/S OF DISCOMFORT NOTED. SAFETY MEASURES IN PLACE. BED LOCK TO THE LOWEST POSITION. TABLE AND WALKER WITHIN REACH. I WILL ENDORSE TO THE FOLLOWING NURSE.
[2022-12-17 19:59] VITALS: BP 107/59
[2022-12-17] MEDS: LOSARTAN POTASSIUM 50 MG TABLET PO SCH ×2 (21:53→22:07)
[2022-12-17] MEDS: ATORVASTATIN 10 MG TABLET PO SCH ×2 (21:53→22:05)
--- NOTE | 2022-12-18 06:18 | NUR ---
END OF SHIFT REPORT Patient hours of sleep 7. Denies SI/HI with no plan during the night. Took all her night medication after extensive education, refused initially then decided to agreed with education. Q 1h head checked, no sharp object around. Ambulate independently with FWW, no c/o pain. Plan for continue inpatient [facility] hospitalization. Will endorse to oncoming RN.
[2022-12-18 08:00] VITALS: BP 121/54
[2022-12-18] MEDS: BRIMONIDINE TARTRATE OPHT SOLN 5 ML BOTTLE EACHEYE SCH ×2 (09:00→17:24)
[2022-12-18] MEDS: SALINE NASAL SPRAY 0.65% 1 BOTTLE BOTTLE NS SCH ×2 (09:00→17:24)
[2022-12-18] MEDS: PILOCARPINE 2% OPTH DROP 15 ML BOTTLE EACHEYE SCH ×2 (09:00→17:24)
[2022-12-18] MEDS: METFORMIN 500 MG TABLET PO SCH ×2 (09:20→17:24)
[2022-12-18] MEDS: risperiDONE-M 0.5 MG TAB.RAPDIS PO SCH (09:20)
[2022-12-18] MEDS: BACLOFEN (10 MG) 10 MG TABLET PO SCH ×2 (09:20→17:24)
[2022-12-18] MEDS: MEMANTINE HCL 5 MG TABLET PO SCH ×2 (09:20→21:46)
[2022-12-18] MEDS: BENZTROPINE MESYLATE (1 MG) 1 MG TABLET PO SCH ×2 (09:23→17:24)
[2022-12-18] MEDS: LINAGLIPTIN 5 MG TABLET PO SCH (09:23)
[2022-12-18] MEDS: DIVALPROEX SODIUM 125 MG CAP.SPRINK PO SCH ×2 (09:23→21:45)
[2022-12-18] MEDS: FAMOTIDINE (20 MG) 20 MG TABLET PO SCH ×2 (09:23→17:24)
[2022-12-18] MEDS: LIDOCAINE 5% (PATCH) 1 EA PATCH TP SCH (09:23)
--- NOTE | 2022-12-18 09:49 | NUR ---
FACILITY CONTACT: SHEA SPOKE WITH DO ([phone]) WHO STATED THAT PT IS WELCOMED BACK WEDNESDAY 12/20. FACILITY WILL PROVIDE TRANSPORTATION AND THEY WILL LET THIS DETECTIVE CHIEF KNOW. SHEA FAXED PATIENT'S CLINICALS ([phone]). SHEA SENT HOME HEALTH REFERRAL.
--- NOTE | 2022-12-18 09:51 | NUR ---
SHEA Family Contact: SW contacted pt's probate conservator Stephy ([phone]) is agreeable of pt returning back to board and care on Friday, 12/20.
[2022-12-18 16:00] VITALS: BP 101/55
[2022-12-18 20:11] VITALS: BP 96/54
[2022-12-18] MEDS ORDERED: PALIPERIDONE PALMITATE 117 MG IM ONE (21:00)
[2022-12-18] MEDS: ATORVASTATIN 10 MG TABLET PO SCH (21:46)
[2022-12-18] MEDS: LOSARTAN POTASSIUM 50 MG TABLET PO SCH (21:50)
[2022-12-18] MEDS: TEMAZEPAM 7.5 MG CAPSULE PO PRN (22:00)
--- NOTE | 2022-12-18 22:05 | NUR ---
DRILLING ENGINEER NOTES Patient in bed, alert oriented x2, without any sign of aggressive behavior noted at this time. Cooperative to staff and compliant with her medications. Patient request for PRN Restoril 7.5mg. Visual check done. Ambulate independently. Will closely monitor for any change of condition.
[2022-12-19] MEDS: ACETAMINOPHEN 325 MG TABLET PO PRN (02:05)
--- NOTE | 2022-12-19 02:10 | NUR ---
Patient woke up, c/o of mild pain 3/10 generalized. Request PRN tylenol 650 mg, given as per MD's order.
[2022-12-19] MEDS ORDERED: OLANZAPINE 10 MG VIAL IM PRN (05:00)
[2022-12-19] MEDS ORDERED: risperiDONE-M 0.5 MG TAB.RAPDIS PO SCH (05:00)
[2022-12-19 08:00] VITALS: BP 102/79
[2022-12-19] MEDS: DIVALPROEX SODIUM 125 MG CAP.SPRINK PO SCH ×2 (09:00→21:29)
[2022-12-19] MEDS: PILOCARPINE 2% OPTH DROP 15 ML BOTTLE EACHEYE SCH ×2 (09:00→17:00)
[2022-12-19] MEDS: LIDOCAINE 5% (PATCH) 1 EA PATCH TP SCH (09:00)
[2022-12-19] MEDS: SALINE NASAL SPRAY 0.65% 1 BOTTLE BOTTLE NS SCH ×2 (09:00→17:00)
[2022-12-19] MEDS: BRIMONIDINE TARTRATE OPHT SOLN 5 ML BOTTLE EACHEYE SCH ×2 (09:00→17:00)
[2022-12-19] MEDS ORDERED: INVEGA SUSTENNA 117 MG IM ONE (09:00)
--- NOTE | 2022-12-19 09:04 | NUR ---
RN- NOTES DEPAKOTE HELD PER DR. LOZA ORDERS UNTIL BLOOD WORK IS COMPLETED.
[2022-12-19 09:25] LABS: BASOPHILS % (AUTO) 0.4 % (0.0-2.0); EOSINOPHILS % (AUTO) 3.1 % (0.0-6.0); HEMATOCRIT 35 % (33-45); HEMOGLOBIN 11.5 g/dL (11.5-14.8); LYMPHOCYTES # (AUTO) 2.1 K/uL (0.8-4.8); LYMPHOCYTES % (AUTO) 27.8 % (20.0-44.0); MEAN CORPUSCULAR HGB CONC 33 g/dl (31.0-36.0); MEAN CORPUSCULAR VOLUME 93 fL (82-100); MONOCYTES # (AUTO) 0.5 K/uL (0.1-1.30); MONOCYTES % (AUTO) 6.8 % (2.0-12.0); NEUTROPHILS # (AUTO) 4.7 K/uL (1.8-8.9); NEUTROPHILS % (AUTO) 61.9 % (43.0-81.0); PLATELET COUNT (AUTO) 215 K/uL (150-450); RED BLOOD CELL COUNT(AUTO) 3.76 MIL/uL (4.0-5.2); WHITE BLOOD COUNT (AUTO) 7.5 K/uL (4.3-11.0)
[2022-12-19 09:49] LABS: ALBUMIN 2.6 g/dL (3.4-5.0); BILIRUBIN,TOTAL 0.3 mg/dL (0.2-1.0); CALCIUM, SERUM 8.8 mg/dL (8.5-10.1); CREATININE 0.8 mg/dL (0.6-1.3); POTASSIUM 3.3 mmol/L (3.5-5.1); TOTAL PROTEIN, SERUM 6.2 g/dL (6.4-8.2)
[2022-12-19] MEDS: BENZTROPINE MESYLATE (1 MG) 1 MG TABLET PO SCH ×2 (09:50→17:08)
[2022-12-19] MEDS: FAMOTIDINE (20 MG) 20 MG TABLET PO SCH ×2 (09:50→17:08)
[2022-12-19] MEDS: METFORMIN 500 MG TABLET PO SCH ×2 (09:50→17:08)
[2022-12-19] MEDS: LINAGLIPTIN 5 MG TABLET PO SCH (09:50)
[2022-12-19] MEDS: MEMANTINE HCL 5 MG TABLET PO SCH ×2 (09:50→21:29)
[2022-12-19] MEDS: BACLOFEN (10 MG) 10 MG TABLET PO SCH ×2 (09:50→17:08)
[2022-12-19] MEDS: MAG HYDROX/AL HYDROX/SIMETH 30 ML UDC PO PRN (12:45)
--- NOTE | 2022-12-19 12:46 | NUR ---
RN- NOTES MAALOX ADMINISTERED DUE TO PATIENT COMPLAINTS OF INDIGESTION.
--- NOTE | 2022-12-19 14:30 | NUR ---
Dorina DE GUZMAN made aware that pt. is for d/c tomorrow to [facility] and needs prescriptions and ordered to continue routine meds and d/c prn's and ORI number provided. Primary nurse faxed prescriptions to the pharmacy.
--- NOTE | 2022-12-19 15:00 | NUR ---
RN- NOTES MEDICATIONS RECONCILED WITH DR. LOZA AND DR. BROTHERS. MEDICATION PRESCRIPTION'S FAXED TO [facility] PHONE: , FAX: , ON [facility], PER FACILITY REQUEST. SPOKE WITH DO AND CONFIRMED MEDICATION LIST.
--- NOTE | 2022-12-19 15:15 | NUR ---
RN- NOTES PHARMACY FAX NUMBER UNABLE TO RECEIVE MEDICATION PRESCRIPTION LIST. CALLED [facility] AND VERIFIED NUMBER. FAXED PAPERWORK 2X, STILL UNABLE TO RECEIVE MEDICATION PRESCRIPTION LIST.
--- NOTE | 2022-12-19 15:45 | NUR ---
RN- NOTES SPOKE WITH DO TO CONFIRM PHARMACY LOCATION, CLARIFIED PHONE NUMBERS.
[2022-12-19 16:00] VITALS: BP 116/69
--- NOTE | 2022-12-19 16:05 | NUR ---
RN- NOTES SPOKE WITH ISIDRO, PHARMACIST AT [facility] . PROVIDED A VERBAL LIST OF ALL MEDICATIONS AND PRESCRIPTION AMOUNTS, WELL DOCTOR INFORMATION. SPOKE WITH DO AND PROVIDED ALL INFORMATION.
[2022-12-19 20:13] VITALS: BP 117/67
--- NOTE | 2022-12-19 20:42 | NUR ---
CLINICAL SERVICES DIRECTOR NOTES: RECEIVED PATIENT VISIBLE ON THE UNIT.ABLE TO WHEELED HERSELF. A/O X2 WITH CONFUSION,VERY PARANOID. VERY NEEDY, SUSPICIOUS ,MANIPULATIVE.BREATHING NON-LABORED WITH EQUAL RISE AND FALL OF THE CHEST. NO C/O PAIN AT THIS TIME. ALL NEEDS ATTENDED AND ANTICIPATED.WILL CONTINUE TO MONITOR FOR SAFETY AND BEHAVIOR.
[2022-12-19] MEDS: ATORVASTATIN 10 MG TABLET PO SCH (21:30)
[2022-12-19] MEDS: LOSARTAN POTASSIUM 50 MG TABLET PO SCH (21:30)
--- NOTE | 2022-12-19 23:00 | NUR ---
GPS RN NOTE, RECEIVED PATIENT AWAKE AND IN BED, NO S/S OR COMPLAINTS OF PAIN AT THIS TIME. PATIENT IS DISPLAYING NO S/S OF APPARENT DISTRESS AT THIS TIME. PATIENT BREATHING IS UNLABORED WITH EQUAL RISE AND FALL OF THE CHEST. PATIENT IS ALERT AND ORIENTED X 2-3 ON ROOM AIR WITH A SPO2 97%. PATIENT IS COMPLIANT WITH MEDICATIONS, CALM, POLITE, MAKES NEEDS KNOWN, AND COOPERATIVE. PATIENT DENIES SUICIDAL AND HOMICIDAL IDEATIONS AT THIS TIME. PATIENT ASSISTED WITH TURNING AND REPOSITIONING Q2HR AND PRN FOR COMFORT AND CIRCULATION. PATIENT HAS NO NEEDS AT THIS TIME. PATIENT EDUCATED ON THE USE OF THE CALL YUEN. PATIENT BED SIDE RAILS UP X 2 FOR SAFETY. PATIENT BED IS LOCKED, LOW, WITH BED ALARM ON. WILL CONTINUE TO MONITOR THIS PATIENT Q15 MINUTES WITH THE HELP OF STAFF TO MAINTAIN SAFETY.
[2022-12-19] MEDS: TEMAZEPAM 7.5 MG CAPSULE PO PRN (23:58)
--- NOTE | 2022-12-19 23:59 | NUR ---
GPS RN NOTE, PATIENT HAS A COMPLAINT OF NOT BEING ABLE TO SLEEP AND IS REQUESTING RESTORIL AT THIS TIME. PATIENT VITAL SIGNS ARE STABLE. GAVE RESTORIL 7.5MG PO HS PRN ORDERED. WILL REASSESS FOR INSOMNIA AND I WILL CONTINUE TO MONITOR THIS PATIENT WITH THE HELP OF STAFF.
[2022-12-20 08:00] VITALS: BP 107/52
[2022-12-20] MEDS: BENZTROPINE MESYLATE (1 MG) 1 MG TABLET PO SCH (08:06)
[2022-12-20] MEDS: LINAGLIPTIN 5 MG TABLET PO SCH (08:06)
[2022-12-20] MEDS: DIVALPROEX SODIUM 125 MG CAP.SPRINK PO SCH (08:06)
[2022-12-20] MEDS: MEMANTINE HCL 5 MG TABLET PO SCH (08:07)
[2022-12-20] MEDS: FAMOTIDINE (20 MG) 20 MG TABLET PO SCH (08:07)
[2022-12-20] MEDS: METFORMIN 500 MG TABLET PO SCH (08:07)
[2022-12-20] MEDS: BACLOFEN (10 MG) 10 MG TABLET PO SCH (08:07)
[2022-12-20] MEDS: LIDOCAINE 5% (PATCH) 1 EA PATCH TP SCH (08:08)
--- NOTE | 2022-12-20 08:08 | NUR ---
SHEA Discharge Note: Patient currently resides at [facility] located at [address] [place] [address]; ([phone]). Gina from the facility ([phone]) will pick pulling machine tender pt at 10AM. Director Radio of the facility Jade ([phone]) is aware and agreeable of discharge. Pts probate conservator daughter Stephy ([phone]) is aware and agreeable. Pt is alert and oriented x2. Pt denies suicidal or homicidal ideation. Pt denies visual/auditory hallucinations. Pt will follow up with Heel Attacher Wood, Dr. Fenton who will monitor and provide psychotropic mediations. Addendum: 12/20/22 at 1342 by SHEA ASTUDILLO Discharge postponed till 12/21 Addendum: 12/20/22 at 1417 by SHEA ASTUDILLO dc will continue for today 12/20/2022
--- NOTE | 2022-12-20 08:20 | NUR ---
Dr. Leonardo gave an order to D/C hold and D/C to [facility] and psychiatrist provided a prescriptions upon discharge.
[2022-12-20] MEDS: SALINE NASAL SPRAY 0.65% 1 BOTTLE BOTTLE NS SCH (08:54)
[2022-12-20] MEDS: BRIMONIDINE TARTRATE OPHT SOLN 5 ML BOTTLE EACHEYE SCH (08:55)
[2022-12-20] MEDS: PILOCARPINE 2% OPTH DROP 15 ML BOTTLE EACHEYE SCH (08:55)
--- NOTE | 2022-12-20 15:30 | NUR ---
NURSE NOTE: 86 YEAR OLD FEMALE DISCHARGED TO [facility] IN STABLE COND. COMPLIANT WITH MEDS, COOPERATIVE WITH TREATMENT PLANS. PT DENIES SI/HI AND INSTRUCTED TO GO TO THE CLOSEST ER OR CALL 911 IF DEVELOPING SI/HI. BEHAVIOR IMPROVED, PSYCHIATRIC TX PLANS MET, MEDICAL TX PLANS DEFERRED FOR CONTINUAL MONITORING. DR LOZA DISCONTINUED HOLD AND BOTH DR LOZA AND DR BROTHERS DISCHARGED THE PT. DISCHARGE MEDS FOWARDED TO PHARMACY AND PICKED UP PRIOR TO DC. EDUCATED PT ABOUT AFTER CARE PLAN AND COPY PROVIDED. RETURNED PERSONAL BELONGINGS TO PT. MEDS RECONCILED WITH DR LOZA AND DR BROTHERS. PT REFUSED TO SIGN DISCHARGE PAPERWORK. PT LEFT THE UNIT AT 1530 VIA WHEELCHAIR.
== END 2022-12-20 15:30 | DRG 885 ==
LOC: ER 16:33 → GPS 21:17
PROVIDERS: ADMIT Psychiatry & Neurology Psychosomatic Medicine; ATTEND Nurse Practitioner Acute Care
DX: F31.64 Bipolar disorder, current episode mixed, severe, with psychotic features (principal); N39.0 Urinary tract infection, site not specified; Z16.12 Extended spectrum beta lactamase (ESBL) resistance; F03.911 Unspecified dementia, unspecified severity, with agitation; E44.0 Moderate protein-calorie malnutrition; B96.4 Proteus (mirabilis) (morganii) as the cause of diseases classified elsewhere; E78.5 Hyperlipidemia, unspecified; E11.9 Type 2 diabetes mellitus without complications; I10 Essential (primary) hypertension; F60.3 Borderline personality disorder; Z79.899 Other long term (current) drug therapy; F41.9 Anxiety disorder, unspecified; Z79.84 Long term (current) use of oral hypoglycemic drugs; Z88.6 Allergy status to analgesic agent; Z91.199 Patient's noncompliance with other medical treatment and regimen due to unspecified reason; Z91.148 Patient's other noncompliance with medication regimen for other reason; E87.6 Hypokalemia; E88.09 Other disorders of plasma-protein metabolism, not elsewhere classified; Z68.26 Body mass index [BMI] 26.0-26.9, adult
CPT/HCPCS: 36415; 80048-TC; 80053-TC; 80061-TC; 80076-TC; 80164-TC; 81001; 82565-TC; 82962-TC; 85025-TC; 87086-TC; A6403; C9803; G0480; J0696; J3490